=== PATIENT | female | born 1985 | race Caucasian/White ===

== ENCOUNTER 2018-04-01 04:07 | Emergency (ER) | payer BC ==
[2018-04-01 05:02] LABS: Absolute Lymphocytes (CBC) 2.7 K/uL (0.7-4.9); Absolute Monocytes 0.9 K/uL (0.1-1.3); Absolute Neutrophil 6.5 K/uL (1.8-8.0); Basophils % 0.8 % (0-1.3); Eosinophils % 1.2 % (0-4.4); Hematocrit 35.4 % (36.0-45.0); Lymphocytes % 26.5 % (15.3-44.8); MCH 29.3 pg (27.0-35.0); MCV 85.7 fL (80-100); MPV 9.6 fL (7.6-11.3); Monocytes % 8.5 % (3.3-12.3); RBC Red Blood Cell Count 4.13 M/uL (3.86-4.86)
[2018-04-01] MEDS ORDERED: NA CHLORIDE 0.9% 1,000 ML ONE (05:13)
[2018-04-01] MEDS ORDERED: ASPIRIN 81 MG CHEWABLE TABLET ONE (05:13)
[2018-04-01 05:17] LABS: Protime INR 0.87
[2018-04-01 05:31] LABS: ALT/SGPT 29 U/L (12-78); AST/SGOT 22 U/L (15-37); Albumin 3.8 g/dL (3.4-5.0); Alkaline Phosphatase 76 U/L (45-117); BUN Blood Urea Nitrogen 16 mg/dL (7-18); Bicarbonate 25 mmol/L (21-32); Bilirubin Direct < 0.1 mg/dL (0-0.2); Bilirubin Total 0.1 mg/dL (0.2-1.0); CKMB Creatine Kinase MB < 1.0 ng/mL (0.3-3.6); Creatine Phosphokinase 88 U/L (26-192); Glucose Level 112 mg/dL (74-106); Magnesium 2.3 mg/dL (1.8-2.4); NT PRO-BNP 42 pg/mL (<125); Potassium 3.8 mmol/L (3.5-5.1); Protein, Total 7.6 g/dL (6.4-8.2); Sodium Level 140 mmol/L (136-145)
[2018-04-01 05:47] LABS: Urine Blood NEGATIVE (NEG); Urine Glucose NEGATIVE (NEG); Urine Protein NEGATIVE (NEG); Urine Specific Gravity 1.025 (1.005-1.030); Urine pH 6.5 (5.0-7.0)
[2018-04-01 07:50] LABS: CKMB Creatine Kinase MB < 1.0 ng/mL (0.3-3.6); Creatine Phosphokinase 65 U/L (26-192)
--- NOTE | 2018-04-01 07:56 | ER ---
Nurse's Notes [facility] Name: Shimon Granger Age: 33 yrs Sex: Female : 1985 Arrival Date: 04/01/2018 Time: 04:10 Bed 16 Private MD: Diagnosis: Chest pain, unspecified-non cardiac Presentation: 04/01 04:21 Presenting complaint: Patient states: she was dancing last night and began to have pain aa1 in her diaphragm area which radiated to her R arm arm. Reports the pain in her chest has since resolved but her R arm is still hurting her. Also reports earlier this morning she felt as if her heart was racing while she was laying on the couch. Transition of care: patient was not received from another setting of care. Onset of symptoms was March 31, 2018 at 22:00. Risk Assessment: Do you want to hurt yourself or someone else? Patient reports no desire to harm self or others. Initial Sepsis Screen: Does the patient meet any 2 criteria? HR > 90 bpm. Does the patient have a suspected source of infection? No. Patient's initial sepsis screen is negative. Care prior to arrival: None. 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 - Social history:: Smoking status: Patient/guardian denies using tobacco. - Ebola Screening: : Patient denies exposure to infectious person Patient denies travel to an Ebola-affected area in the 21 days before illness onset. - Family history:: not pertinent. Screenin:29 Abuse screen: Denies threats or abuse. Denies injuries from another. Nutritional aa1 screening: No deficits noted. Tuberculosis screening: No symptoms or risk factors identified. Fall Risk None identified. Assessment: 04:29 General: Appears in no apparent distress. comfortable, Behavior is calm, cooperative, aa1 appropriate for age. Pain: Complains of pain in diaphragm, xyphoid area and right arm Pain currently is 7 out of 10 on a pain scale. Pain began 0 last night Is continuous. Neuro: Level of Consciousness is awake, alert, obeys commands, Oriented to person, place, time, situation, Moves all extremities. Full function Gait is steady, Speech is normal. Cardiovascular: Reports chest pain, Denies diaphoresis, nausea, shortness of breath, Heart tones S1 S2 present Rhythm is regular Chest pain quality is sharp, radiates to right arm(s). Respiratory: Airway is patent Respiratory effort is even, unlabored, Respiratory pattern is regular, symmetrical, Breath sounds are clear bilaterally. GI: No signs and/or symptoms were reported involving the gastrointestinal system. : No signs and/or symptoms were reported regarding the genitourinary system. EENT: No signs and/or symptoms were reported regarding the EENT system. Derm: Skin is intact, is healthy with good turgor, Skin is pink, warm \T\ dry. Musculoskeletal: Circulation, motion, and sensation intact. Capillary refill < 3 seconds. 05:37 Reassessment: Patient appears in no apparent distress at this time. Patient and/or aa1 family updated on plan of care and expected duration. Pain level reassessed. Patient is alert, oriented x 3, equal unlabored respirations, skin warm/dry/pink. Awaiting xray. 06:40 Reassessment: Patient appears in no apparent distress at this time. Patient and/or aa1 family updated on plan of care and expected duration. Pain level reassessed. Patient is alert, oriented x 3, equal unlabored respirations, skin warm/dry/pink. Pt back from CT, awaiting results. 07:05 General: Appears in no apparent distress. comfortable, Behavior is calm, cooperative. rb1 Pain: Denies pain. Neuro: Level of Consciousness is awake, alert, obeys commands, Oriented to person, place, time, situation. Cardiovascular: Capillary refill < 3 seconds is brisk in bilateral fingers. Respiratory: Airway is patent Respiratory effort is even, unlabored, Respiratory pattern is regular, symmetrical. Derm: Skin is pink, warm \T\ dry. 08:00 Reassessment: Patient appears in no apparent distress at this time. No changes from rb1 previously documented assessment. Vital Signs: 04:26 BP 120 / 60; Pulse 106; Resp 20; Temp 98.7; Pulse Ox 100% on R/A; Weight 90.72 kg; aa1 Height 5 ft. 0 in. (152.40 cm); Pain 7/10; 05:38 BP 102 / 61; Pulse 88; Resp 16; Pulse Ox 98% on R/A; aa1 06:02 BP 113 / 58 LA; aa1 06:02 BP 108 / 61 RA; aa1 06:40 BP 124 / 65; Pulse 75; Resp 20; Pulse Ox 99% on R/A; Pain 4/10; aa1 07:05 BP 124 / 62; Pulse 70; Resp 15; Pulse Ox 100% on R/A; Pain 0/10; rb1 08:00 BP 113 / 52; Pulse 67; Resp 18; Pulse Ox 100% on R/A; rb1 04:26 Body Mass Index 39.06 (90.72 kg, 152.40 cm) aa1 ED Course: 04:10 Patient arrived in ED. es 04:20 Adis Baker MD is Attending Physician. chuy 04:21 Taisha Caldwell RN is Primary Nurse. aa1 04:26 Triage completed. aa1 04:26 Arm band placed on right wrist. aa1 04:29 Patient has correct armband on for positive identification. Placed in gown. Bed in low aa1 position. child center assistant on. Pulse ox on. NIBP on. 04:29 Patient maintains SpO2 saturation greater than 95% on room air. aa1 04:45 Initial lab(s) drawn, by ED staff, sent to lab. Inserted saline lock: 20 gauge in right aa1 antecubital area, using aseptic technique. ,using aseptic technique. by Glenys Bernardo RN Blood collected. 04:50 EKG done, by ED staff, reviewed by Adis Baker MD. aa1 05:20 Urine collected: clean catch specimen, jannette colored. aa1 06:11 X-ray completed. Portable x-ray completed in exam room. Patient tolerated procedure mh1 well. 06:13 XRAY Chest (1 view) In Process Unspecified. EDMS 06:[address] via stretcher. kw1 06:26 CT Chest For PE Angio In Process Unspecified. EDMS 06:28 CT completed. Patient tolerated procedure well. Patient moved back from CT. kw1 06:49 Sharmaine Colmenares FNP is PHCP. kav 06:49 Sharmaine Colmenares FNP is PHCP. ka 07: Report given to Elle Craft RN. 07:06 Repeat lab(s) drawn. by me, sent to lab. 08:27 Elle Craft, RN is Primary Nurse. 08:27 No provider procedures requiring assistance completed. IV discontinued, intact, rb1 bleeding controlled, No redness/swelling at site. Pressure dressing applied. Administered Medications: 05:15 Drug: NS 0.9% 1000 ml Route: IV; Rate: 1 bolus; Site: right antecubital; aa 05:15 Drug: Aspirin Chewable Tablet 162 mg Route: PO; aa1 06:39 Follow up: Response: No adverse reaction aa Outcome: 07:55 Discharge ordered by . 08:27 Patient left the ED. 08:27 Discharged to home ambulatory. 08:27 Condition: stable 08:27 Discharge instructions given to patient, Instructed on discharge instructions, follow up and referral plans. Demonstrated understanding of instructions, follow-up care, Prescriptions given X none Signatures: Dispatcher [employer] Taisha Dunlap, RN RN aa1 Adis Baker MD MD cha Vern, Katherine, FNP CSM CONSULTANT Micaela Rand [facility] Elle Craft, CHAU RN rb1 Mamta Castaneda1
--- NOTE | 2018-04-01 07:56 | EDPHYS ---
Physician Documentation [facility] Name: Shimon Granger Age: 33 yrs Sex: Female : 1985 Arrival Date: 04/01/2018 Time: 04:10 Bed 16 Private MD: ED Physician Adis Baker HPI: 04/01 04:58 This 33 yrs old Female presents to ER via Ambulatory with complaints of Chest chuy Pain, RT arm pain. 04:58 The patient or guardian reports chest pain that is located primarily in the substernal chuy area. The pain radiates to the right arm. Associated signs and symptoms: Pertinent positives: lightheadedness. The chest pain is described as sharp. Duration: The patient or guardian reports multiple episodes, with no pattern. Modifying factors: The symptoms are alleviated by nothing. the symptoms are aggravated by nothing. Severity of pain: At its worst the pain was mild moderate in the emergency department the pain is unchanged. The patient has not experienced similar symptoms in the past. 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 - Social history:: Smoking status: Patient/guardian denies using tobacco. - Ebola Screening: : Patient denies exposure to infectious person Patient denies travel to an Ebola-affected area in the 21 days before illness onset. - Family history:: not pertinent. ROS: 04:58 Constitutional: Negative for fever, chills, and weight loss, Eyes: Negative for injury, chuy pain, redness, and discharge, ENT: Negative for injury, pain, and discharge, Neck: Negative for injury, pain, and swelling, Respiratory: Negative for shortness of breath, cough, wheezing, and pleuritic chest pain, Abdomen/GI: Negative for abdominal pain, nausea, vomiting, diarrhea, and constipation, Back: Negative for injury and pain, : Negative for injury, bleeding, discharge, and swelling, MS/Extremity: Negative for injury and deformity, Skin: Negative for injury, rash, and discoloration, Neuro: Negative for headache, weakness, numbness, tingling, and seizure, Psych: Negative for depression, anxiety, suicide ideation, homicidal ideation, and hallucinations, Allergy/Immunology: Negative for hives, rash, and allergies, Endocrine: Negative for neck swelling, polydipsia, polyuria, polyphagia, and marked weight changes. 04:58 Cardiovascular: Positive for chest pain, of the chest. Exam: 04:58 Constitutional: This is a well developed, well nourished patient who is awake, alert, chuy and in no acute distress. Head/Face: Normocephalic, atraumatic. Eyes: Pupils equal round and reactive to light, extra-ocular motions intact. Lids and lashes normal. Conjunctiva and sclera are non-icteric and not injected. Cornea within normal limits. Periorbital areas with no swelling, redness, or edema. ENT: Nares patent. No nasal discharge, no septal abnormalities noted. Tympanic membranes are normal and external auditory canals are clear. Oropharynx with no redness, swelling, or masses, exudates, or evidence of obstruction, uvula midline. Mucous membranes moist. Neck: Trachea midline, no thyromegaly or masses palpated, and no cervical lymphadenopathy. Supple, full range of motion without nuchal rigidity, or vertebral point tenderness. No Meningismus. Chest/axilla: Normal chest wall appearance and motion. Nontender with no deformity. No lesions are appreciated. Cardiovascular: Regular rate and rhythm with a normal S1 and S2. No gallops, murmurs, or rubs. Normal PMI, no JVD. No pulse deficits. Respiratory: Lungs have equal breath sounds bilaterally, clear to auscultation and percussion. No rales, rhonchi or wheezes noted. No increased work of breathing, no retractions or nasal flaring. Abdomen/GI: Soft, non-tender, with normal bowel sounds. No distension or tympany. No guarding or rebound. No evidence of tenderness throughout. Back: No spinal tenderness. No costovertebral tenderness. Full range of motion. Female : Normal external genitalia. Skin: Warm, dry with normal turgor. Normal color with no rashes, no lesions, and no evidence of cellulitis. MS/ Extremity: Pulses equal, no cyanosis. Neurovascular intact. Full, normal range of motion. Neuro: Awake and alert, GCS 15, oriented to person, place, time, and situation. Cranial nerves II-XII grossly intact. Motor strength 5/5 in all extremities. Sensory grossly intact. Cerebellar exam normal. Normal gait. Psych: Awake, alert, with orientation to person, place and time. Behavior, mood, and affect are within normal limits. 04:58 Musculoskeletal/extremity: ROM: full active range of motion, full passive range of motion, Circulation is intact in all extremities. DVT Exam: No signs of deep vein thrombosis. no pain, no swelling, no tenderness, negative Homans' sign noted on exam, no appreciated bluish discoloration, no erythema, no increased warmth. Vital Signs: 04:26 BP 120 / 60; Pulse 106; Resp 20; Temp 98.7; Pulse Ox 100% on R/A; Weight 90.72 kg; aa1 Height 5 ft. 0 in. (152.40 cm); Pain 7/10; 05:38 BP 102 / 61; Pulse 88; Resp 16; Pulse Ox 98% on R/A; aa1 06:02 BP 113 / 58 LA; aa1 06:02 BP 108 / 61 RA; aa1 06:40 BP 124 / 65; Pulse 75; Resp 20; Pulse Ox 99% on R/A; Pain 4/10; aa1 07:05 BP 124 / 62; Pulse 70; Resp 15; Pulse Ox 100% on R/A; Pain 0/10; rb1 08:00 BP 113 / 52; Pulse 67; Resp 18; Pulse Ox 100% on R/A; rb1 04:26 Body Mass Index 39.06 (90.72 kg, 152.40 cm) aa1 MDM: 04:20 Patient medically screened. [facility] 04:58 Data reviewed: vital signs, nurses notes, lab test result(s), EKG, radiologic studies, chuy plain films. 04/01 04:33 Order name: Basic Metabolic Panel; Complete Time: 05:59 ms 04/01 04:33 Order name: CBC with Diff; Complete Time: 05:59 ms 04/01 04:33 Order name: Ckmb; Complete Time: 05:59 ms 04/01 04:33 Order name: CPK; Complete Time: 05:59 ms 04/01 04:33 Order name: LFT's; Complete Time: 05:59 ms 04/01 04:33 Order name: Magnesium; Complete Time: 05:59 ms 04/01 04:33 Order name: NT PRO-BNP; Complete Time: 05:59 ms 04/01 04:33 Order name: PT-INR; Complete Time: 05:59 ms 04/01 04:33 Order name: Ptt, Activated; Complete Time: 05:59 ms 04/01 04:33 Order name: Troponin (emerg Dept Use Only); Complete Time: 05:59 ms 04/01 05:05 Order name: D-Dimer; Complete Time: 05:59 EDMS 04/01 05:31 Order name: Urine Dipstick--Ancillary (enter results); Complete Time: 05:59 ms 04/01 05:31 Order name: Urine --Ancillary (enter results); Complete Time: 05:59 ms 04/01 04:33 Order name: XRAY Chest (1 view) ms 04/01 04:33 Order name: EKG; Complete Time: 04:33 ms 04/01 04:33 Order name: Cardiac monitoring; Complete Time: 04:51 ms 04/01 04:33 Order name: EKG - Nurse/Tech; Complete Time: 04:51 ms 04/01 04:33 Order name: IV Saline Lock; Complete Time: 04:51 ms 04/01 04:33 Order name: Labs collected and sent; Complete Time: 04:51 ms 04/01 04:33 Order name: O2 Per Protocol; Complete Time: 04:51 ms 04/01 04:33 Order name: O2 Sat Monitoring; Complete Time: 04:51 ms 04/01 04:33 Order name: Urine Dipstick-Ancillary (obtain specimen); Complete Time: 05:35 ms 04/01 04:57 Order name: Bilateral blood pressure; Complete Time: 06:02 chuy 04/01 05:58 Order name: CT Chest For PE Angio 04/01 06:35 Order name: Ckmb; Complete Time: 07:55 chuy 04/01 06:35 Order name: Creatine Phosphokinase; Complete Time: 07:55 chuy 04/01 06:35 Order name: Troponin (emerg Dept Use Only); Complete Time: 07:54 chuy 04/01 06:35 Order name: Repeat Cardiac Enzymes at: 700 am; Complete Time: 07:06 chuy Administered Medications: 05:15 Drug: NS 0.9% 1000 ml Route: IV; Rate: 1 bolus; Site: right antecubital; aa1 05:15 Drug: Aspirin Chewable Tablet 162 mg Route: PO; aa1 06:39 Follow up: Response: No adverse reaction aa1 Disposition: 04/01/18 07:55 Discharged to Home. Impression: Chest pain, unspecified - non cardiac. - Condition is Stable. - Discharge Instructions: Nonspecific Chest Pain, Chest Wall Pain, Chest Wall Pain, [id number], Nonspecific Chest Pain, [id number], Aspirin and Your Heart. - Medication Reconciliation Form, Thank You Letter form. - Follow up: Private Physician; When: 2 - 3 days; Reason: Recheck today's complaints, Continuance of care, Re-evaluation by your physician. - Problem is new. - Symptoms have improved. Signatures: Dispatcher [employer] [facility] Taisha Caldwell RN RN aa1 Adis Baker MD MD cha Vern, Katherine, BUDGET REPORT CLERK BUDGET REPORT CLERKGlenys Richards ms, Rebecca RN RN rb1 Corrections: (The following items were deleted from the chart) 05:05 04:58 D-DIMER+COAG.LAB.BRZ ordered. [facility] 08:27 07:55 04/01/2018 07:55 Discharged to Home. Impression: Chest pain, unspecified - non rb1 cardiac. Condition is Stable. Discharge Instructions: Nonspecific Chest Pain, Chest Wall Pain, Chest Wall Pain, [id number]-[id number], Nonspecific Chest Pain, Hrvt-pb-[id number], Aspirin and Your Heart. Forms are Medication Reconciliation Form, Thank You Letter, Antibiotic Education, Prescription Opioid Use. Follow up: Private Physician; When: 2 - 3 days; Reason: Recheck today's complaints, Continuance of care, Re-evaluation by your physician. Problem is new. Symptoms have improved. kawally
[2018-04-01 08:33] VITALS: TEMP 98.7
[2018-04-01 08:37] VITALS: BP 124/65; O2SAT 99
--- NOTE | 2018-04-01 09:27 | EKG ---
Test Date: 2018-04-01 Test Time: 04:38:06 Agronomy Research Manager: SILAS MEASUREMENT RESULTS: Intervals: Rate: 109 WY: 200 QRSD: 74 QT: 304 QTc: 409 [place]: P: 49 WY: 200 QRS: 52 T: 45 INTERPRETIVE STATEMENTS: Sinus tachycardia Otherwise normal ECG No previous ECG available for comparison Electronically Signed On 04-01-18 09:27:11 CDT by Sadi Russ
--- NOTE | 2018-04-01 11:34 | RAD REPORT ---
EXAM DESCRIPTION: RAD - Chest Single View - 04/01/2018 6:15 am CLINICAL HISTORY: Chest pain COMPARISON: None. TECHNIQUE: AP portable chest image was obtained 0559 hours . FINDINGS: Lungs are clear. Heart and vasculature are normal. No measurable pleural effusion and no p neumothorax. No gross bony abnormality seen. No acute aortic findings suspected. IMPRESSION: No acute cardiopulmonary process.
--- NOTE | 2018-04-01 11:36 | RAD REPORT ---
EXAM DESCRIPTION: CT - Chest For Pe Angio - 04/01/2018 6:26 am CLINICAL HISTORY: Chest pain, arm pain, COPD A preliminary written report was provided at the time of the study, and the report was reviewed prio r to final dictation. COMPARISON: Chest films same date TECHNIQUE: Dynamically enhanced 3 mm thick images of the chest were obtained during administration o f approximately 150mL Isovue 370 IV contrast. Coronal and oblique reconstruction images were generate d and reviewed. Exam utilizes a protocol to evaluate the pulmonary arterial tree. All CT scans are performed using dose optimization technique as appropriate and may include automated exposure control or mA/KV adjustment according to patient size. FINDINGS: No pulmonary emboli are identified. The aorta as imaged shows no acute or suspicious finding. No pericardial thickening or effusion. No infiltrate or mass in the lung parenchyma. No pleural effusion or pleural thickening. No mediastinal or hilar suspicious masses. No chest wall masses or abnormal axillary lymphadenopathy. IMPRESSION: No pulmonary emboli identified. No other significant or suspicious findings.
== END 2018-04-01 08:27 | disposition home or self-care (01) ==
LOC: ER 04:07
DX: R07.9 Chest pain, unspecified (principal)
CPT/HCPCS: 36415; 71045; 71275; 80048; 80076; 81003; 81025; 82550; 82553; 83735; 83880; 84484; 85025; 85379; 85610; 85730; 93005; 99285; J7030; Q9967

== ENCOUNTER 2018-05-11 16:33 | Emergency (ER) | payer BC ==
[2018-05-11] MEDS ORDERED: IBUPROFEN 400 MG TAB ONE (17:27)
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
[2018-05-11 18:19] LABS: Urine Blood 1+ (NEG); Urine Glucose NEGATIVE (NEG); Urine Protein NEGATIVE (NEG)
[2018-05-11 18:21] VITALS: BP 155/67; TEMP 97.9; O2SAT 100
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
== END 2018-05-11 18:02 | disposition home or self-care (01) ==
LOC: ER 16:33
DX: R07.89 Other chest pain (principal); V49.40XA Driver injured in collision with unspecified motor vehicles in traffic accident, initial encounter
CPT/HCPCS: 71045; 81003; 81025; 99284

== ENCOUNTER 2021-06-19 10:24 | Emergency (ER) | payer BC, OTHER ==
[2021-06-19 10:52] LABS: Absolute Lymphocytes (CBC) 1.5 K/uL (0.7-4.9); Basophils % 0.5 % (0-1.3); Hematocrit 37.7 % (36.0-45.0); Lymphocytes % 23.5 % (15.3-44.8); MPV 9.1 fL (7.6-11.3); RBC Red Blood Cell Count 4.59 M/uL (3.86-4.86)
[2021-06-19 10:55] LABS: Protime INR 1.14
[2021-06-19 11:11] LABS: ALT/SGPT 30 U/L (12-78); AST/SGOT 17 U/L (15-37); Albumin 4.1 g/dL (3.4-5.0); Alkaline Phosphatase 79 U/L (45-117); BUN Blood Urea Nitrogen 10 mg/dL (7-18); Bicarbonate 28 mmol/L (21-32); Bilirubin Direct 0.1 mg/dL (0-0.2); Bilirubin Total 0.4 mg/dL (0.2-1.0); Glucose Level 104 mg/dL (74-106); Magnesium 2.7 mg/dL (1.8-2.4); NT PRO-BNP 49 pg/mL (<125); Potassium 4.1 mmol/L (3.5-5.1); Protein, Total 8.3 g/dL (6.4-8.2); Sodium Level 138 mmol/L (136-145); Troponin (Emerg Dept Use Only) < 0.02 ng/mL (0.0-0.045)
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
--- NOTE | 2021-06-19 13:11 | RAD REPORT ---
EXAM DESCRIPTION: CT - Angio Aorta For Dissection - 06/19/2021 12:55 pm CLINICAL HISTORY: Dissection;PE COMPARISON: None. TECHNIQUE: Dynamically enhanced 3 mm thick images of the chest, abdomen, and upper pelvis were obtai feliberto during administration of approximately 150mL Isovue 370 IV contrast. Sagittal and coronal reconst ruction images were generated using MIP and reviewed. Exam utilizes a protocol to evaluate entire cou rse of the aorta. All CT scans are performed using dose optimization technique as appropriate and may include automated exposure control or mA/KV adjustment according to patient size. FINDINGS: Aorta is normal in diameter with no dissection or other acute aortic findings. Reconstruct ion images show no significant findings. Pulmonary arteries are normal as well. No cardiomegaly, pericardial thickening or pericardial effusio n. No mass or infiltrate in the lung parenchyma. No pleural thickening, pleural effusion or pneumothorax . No abnormal mediastinal or hilar mass or lymphadenopathy seen. No chest wall mass or abnormal axillar y lymphadenopathy. Celiac, SMA and renal arteries show no suspicious findings. Solid abdominal viscera and bowel show no significant findings. No mass or abnormal lymphadenopathy. No free air, free fluid or inflammatory stranding. No urinary bladder abnormality. IMPRESSION: Negative CT scan of the aorta. No other significant findings on chest, abdomen and upper pelvis examination.
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
[2021-06-19] MEDS ORDERED: FAMOTIDINE 20 MG/2 ML VIAL IV ONE (13:24)
[2021-06-19] MEDS ORDERED: NA CHLORIDE 0.9% 1,000 ML ONE (13:24)
--- NOTE | 2021-06-19 13:37 | EDPHYS ---
Physician Documentation [facility] Name: Shimon Granger Age: 36 yrs Sex: Female : 1985 Arrival Date: 06/19/2021 Time: 10:25 Bed 14 Private MD: TIM Physician Adis Baker HPI: 06/19 12:57 This 36 yrs old Female presents to ER via Ambulatory with complaints of Chest chuy Pain. 12:57 This 36 yrs old Female presents to ER via Ambulatory with complaints of Chest chuy Pain. 12:57 The patient or guardian reports chest pain that is located primarily in the substernal chuy area, anterior chest wall, left. The pain radiates to the left shoulder. The chest pain is described as aching. 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 - Social history:: Smoking status: Patient denies any tobacco usage or history of. - Family history:: not pertinent. ROS: 12:58 Constitutional: Negative for fever, chills, and weight loss, Eyes: Negative for injury, chuy pain, redness, and discharge, ENT: Negative for injury, pain, and discharge, Neck: Negative for injury, pain, and swelling, Respiratory: Negative for shortness of breath, cough, wheezing, and pleuritic chest pain, Back: Negative for injury and pain, : Negative for injury, bleeding, discharge, and swelling, MS/Extremity: Negative for injury and deformity, Skin: Negative for injury, rash, and discoloration, Neuro: Negative for headache, weakness, numbness, tingling, and seizure, Psych: Negative for depression, anxiety, suicide ideation, homicidal ideation, and hallucinations, Allergy/Immunology: Negative for hives, rash, and allergies, Endocrine: Negative for neck swelling, polydipsia, polyuria, polyphagia, and marked weight changes, Hematologic/Lymphatic: Negative for swollen nodes, abnormal bleeding, and unusual bruising. 12:58 Cardiovascular: Positive for chest pain. 12:58 Respiratory: Positive for 12:58 Abdomen/GI: Positive for abdominal pain, abdominal cramps, of the epigastric area, right upper quadrant and left upper quadrant. Exam: 12:58 Constitutional: This is a well developed, well nourished patient who is awake, alert, chuy and in no acute distress. Head/Face: Normocephalic, atraumatic. Eyes: Pupils equal round and reactive to light, extra-ocular motions intact. Lids and lashes normal. Conjunctiva and sclera are non-icteric and not injected. Cornea within normal limits. Periorbital areas with no swelling, redness, or edema. ENT: Nares patent. No nasal discharge, no septal abnormalities noted. Tympanic membranes are normal and external auditory canals are clear. Oropharynx with no redness, swelling, or masses, exudates, or evidence of obstruction, uvula midline. Mucous membranes moist. Neck: Trachea midline, no thyromegaly or masses palpated, and no cervical lymphadenopathy. Supple, full range of motion without nuchal rigidity, or vertebral point tenderness. No Meningismus. Chest/axilla: Normal chest wall appearance and motion. Nontender with no deformity. No lesions are appreciated. Cardiovascular: Regular rate and rhythm with a normal S1 and S2. No gallops, murmurs, or rubs. Normal PMI, no JVD. No pulse deficits. Respiratory: Lungs have equal breath sounds bilaterally, clear to auscultation and percussion. No rales, rhonchi or wheezes noted. No increased work of breathing, no retractions or nasal flaring. Abdomen/GI: Soft, non-tender, with normal bowel sounds. No distension or tympany. No guarding or rebound. No evidence of tenderness throughout. Back: No spinal tenderness. No costovertebral tenderness. Full range of motion. Skin: Warm, dry with normal turgor. Normal color with no rashes, no lesions, and no evidence of cellulitis. MS/ Extremity: Pulses equal, no cyanosis. Neurovascular intact. Full, normal range of motion. Neuro: Awake and alert, GCS 15, oriented to person, place, time, and situation. Cranial nerves II-XII grossly intact. Motor strength 5/5 in all extremities. Sensory grossly intact. Cerebellar exam normal. Normal gait. Psych: Awake, alert, with orientation to person, place and time. Behavior, mood, and affect are within normal limits. 12:58 Musculoskeletal/extremity: DVT Exam: No signs of deep vein thrombosis. no pain, no swelling, no tenderness, negative Homans' sign noted on exam, no appreciated bluish discoloration, no erythema, no increased warmth. 13:03 ECG was reviewed by the Attending Physician. chuy Vital Signs: 10:31 BP 123 / 57; Pulse 93; Resp 16; Temp 98.2; Pulse Ox 100% on R/A; Weight 92.99 kg; kj1 Height 5 ft. (152.40 cm); Pain 8/10; 13:19 BP 108 / 52; Pulse 56; Resp 16 S; Pulse Ox 100% on R/A; jd3 10:31 Body Mass Index 40.04 (92.99 kg, 152.40 cm) kj1 MDM: 11:27 Patient medically screened. chuy 12:59 Differential diagnosis: abnormal EKG, acute myocardial infarction, cholecystitis, chuy Cholelithiasis costochondritis, gastroesophageal reflux disease (GERD), hiatal hernia, pancreatitis, peptic ulcer disease, stable angina, unstable angina, myocardia ischemia or infarction, non-specific abd pain, pancreatitis, Peptic Ulcer Disease, Ureterolithiasis, urinary tract infection. HEART Score: History: Slightly Suspicious (0), ECG: Normal (0), Age: < or = 45 years (0), Risk Factors: No Risk Factors Known (0), Troponin: < or = 1 x Normal Limit (0), Total Score = 0. The patient's deep vein thrombosis risk score was calculated as follows: Total Score: 0. This patient was found to be at low risk for a deep vein thrombosis by using the Well's assessment criteria. The patient's pulmonary embolism risk score was calculated as follows: Total Score: 0-2 points. This patient was found to be at low risk for a pulmonary embolism by using the Well's assessment criteria. VIDAL Risk Score: TOTAL SCORE = 0. Data reviewed: vital signs, nurses notes, lab test result(s), EKG, radiologic studies, CT scan, plain films, ultrasound. Data interpreted: contract designer: rate is 93 beats/min, rhythm is regular, Pulse oximetry: on room air is 100 %. Test interpretation: by ED physician or midlevel provider: ECG, plain radiologic studies. 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 06/19 10:42 Order name: Basic Metabolic Panel [facility] 06/19 10:42 Order name: CBC with Diff aa 06/19 10:42 Order name: LFT's aa 06/19 10:42 Order name: Magnesium; Complete Time: 11:29 aa5 06/19 10:42 Order name: NT PRO-BNP; Complete Time: 11:29 aa5 06/19 10:42 Order name: PT-INR; Complete Time: 11:29 aa5 06/19 10:42 Order name: Troponin (emerg Dept Use Only); Complete Time: 11:29 aa5 06/19 10:42 Order name: XRAY Chest (1 view); Complete Time: 11:29 aa 06/19 10:43 Order name: Basic Metabolic Panel; Complete Time: 11:29 EDMS 06/19 10:43 Order name: CBC with Automated Diff; Complete Time: 11:29 EDMS 06/19 10:43 Order name: Liver (Hepatic) Function; Complete Time: 11:29 EDMS 06/19 10:45 Order name: Abdomen Limited US; Complete Time: 13:36 aa5 06/19 12:33 Order name: CT Aorta for Dissection; Complete Time: 13:36 chuy 06/19 10:42 Order name: EKG; Complete Time: 10:43 5 06/19 10:42 Order name: Cardiac monitoring; Complete Time: 11:18 aa5 06/19 10:42 Order name: EKG - Nurse/Tech; Complete Time: 10:43 aa5 06/19 10:42 Order name: IV Saline Lock; Complete Time: 10:43 aa5 06/19 10:42 Order name: Labs collected and sent; Complete Time: 10:43 aa5 06/19 10:42 Order name: O2 Per Protocol; Complete Time: 10:43 aa5 06/19 10:42 Order name: O2 Sat Monitoring; Complete Time: 10:43 aa EC:03 Rate is 82 beats/min. Rhythm is regular. QRS [place] is Normal. VT interval is normal. QRS chuy interval is normal. QT interval is normal. No Q waves. T waves are Normal. No ST changes noted. Clinical impression: Normal ECG and No evidence of ischemia. Interpreted by me. Reviewed by me. Administered Medications: 13:14 Drug: Pepcid (famotidine) 20 mg Route: IVP; Site: right antecubital; jd3 13:58 Follow up: Response: No adverse reaction jd3 13:14 Drug: NS 0.9% 1000 ml Route: IV; Rate: 1 bolus; Site: right antecubital; jd3 13:58 Follow up: Response: No adverse reaction; IV Status: Completed infusion; IV Intake: jd3 1000ml Disposition Summary: 06/19/21 13:37 Discharge Ordered Location: Home chuy Problem: new chuy Symptoms: have improved chuy Condition: Stable chuy Diagnosis - Epigastric abdominal tenderness chuy - Chest pain, unspecified chuy - Functional dyspepsia chuy Followup: chuy - With: Private Physician - When: 2 - 3 days - Reason: Recheck today's complaints, Continuance of care, Re-evaluation by your physician Followup: chuy - With: - When: 2 - 3 days - Reason: Recheck today's complaints, Re-evaluation by your physician Followup: chuy - With: - When: 2 - 3 days - Reason: Recheck today's complaints, Re-evaluation by your physician Discharge Instructions: - Discharge Summary Sheet chuy - Abdominal Pain, Adult chuy - Nonspecific Chest Pain, Adult chuy - Abdominal Pain, Adult, [id number] chuy - Nonspecific Chest Pain, Adult, [id number] chuy - Aspirin and Your Heart chuy Forms: - Medication Reconciliation Form chuy - Thank You Letter chuy - Antibiotic Education chuy - Prescription Opioid Use chuy Prescriptions: - Pepcid 20 mg Oral Tablet - take 1 tablet by ORAL route every 12 hours for 30 days; 60 tablet; Refills: 0, chuy Product Selection Permitted Signatures: Dispatcher [employer] Adis Boston MD MD cha Calderon, Audri, RN RN aa5 Juan M Lopez RN RN jd3
--- NOTE | 2021-06-19 13:37 | ER ---
Nurse's Notes [facility] Name: Shimon Granger Age: 36 yrs Sex: Female : 1985 Arrival Date: 06/19/2021 Time: 10:25 Bed 14 Private MD: Diagnosis: Epigastric abdominal tenderness;Chest pain, unspecified;Functional dyspepsia Presentation: 06/19 10:30 Chief complaint: Patient states: upper abd pain that began on Monday. Pt also aa5 reports left-sided upper chest pain that began today. 10:30 Method Of Arrival: Ambulatory aa5 10:30 Coronavirus screen: At this time, the client does not indicate any symptoms associated aa5 with coronavirus-19. Ebola Screen: Patient negative for fever greater than or equal to 101.5 degrees Fahrenheit, and additional compatible Ebola Virus Disease symptoms. Initial Sepsis Screen: Does the patient meet any 2 criteria? No. Patient's initial sepsis screen is negative. Does the patient have a suspected source of infection? No. Patient's initial sepsis screen is negative. Risk Assessment: Do you want to hurt yourself or someone else? Patient reports no desire to harm self or others. Onset of symptoms was June 2021. 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 - Social history:: Smoking status: Patient denies any tobacco usage or history of. - Family history:: not pertinent. Screenin:24 Abuse screen: Denies threats or abuse. Nutritional screening: No deficits noted. jd3 Tuberculosis screening: No symptoms or risk factors identified. Fall Risk IV access (20 points). Ambulatory Aid- None/Bed Rest/Nurse Assist (0 pts). Gait- Normal/Bed Rest/Wheelchair (0 pts) Mental Status- Oriented to own ability (0 pts). Total Spencer Fall Scale indicates No Risk (0-24 pts). Assessment: 11:22 General: Appears in no apparent distress. comfortable, Behavior is calm, cooperative, jd3 appropriate for age. Pain: Denies pain. Pain does not radiate. Pain began gradually, Goal of pain control is to pt reported pain prior to arrival, but pain has gone away at this point. Neuro: Level of Consciousness is awake, alert, obeys commands, Oriented to person, place, time, situation. Cardiovascular: Capillary refill < 3 seconds Patient's skin is warm and dry. Rhythm is regular. Respiratory: Airway is patent Respiratory effort is even, unlabored, Respiratory pattern is regular, symmetrical, Denies cough, shortness of breath. GI: Abdomen is non-distended, Abd is soft and non tender X 4 quads. Patient currently denies diarrhea, nausea, vomiting. : No signs and/or symptoms were reported regarding the genitourinary system. EENT: No signs and/or symptoms were reported regarding the EENT system. Derm: Skin is intact, Skin is dry, Skin is normal, Skin temperature is warm. Musculoskeletal: Circulation, motion, and sensation intact. Range of motion: intact in all extremities. 13:18 Reassessment: Patient appears in no apparent distress at this time. Patient and/or jd3 family updated on plan of care and expected duration. Pain level reassessed. Patient is alert, oriented x 3, equal unlabored respirations, skin warm/dry/pink. reporting headache, provider notified, no new orders at this time. awaiting results and disposition. 13:56 Reassessment: Patient appears in no apparent distress at this time. Patient and/or jd3 family updated on plan of care and expected duration. Pain level reassessed. Patient is alert, oriented x 3, equal unlabored respirations, skin warm/dry/pink. reported understanding of discharge instructions. even and steady gait upon discharge. Vital Signs: 10:31 BP 123 / 57; Pulse 93; Resp 16; Temp 98.2; Pulse Ox 100% on R/A; Weight 92.99 kg; kj1 Height 5 ft. (152.40 cm); Pain 8/10; 13:19 BP 108 / 52; Pulse 56; Resp 16 S; Pulse Ox 100% on R/A; jd3 10:31 Body Mass Index 40.04 (92.99 kg, 152.40 cm) kj1 ED Course: 10:25 Patient arrived in ED. as 10:30 EKG completed in triage. Results shown to MD. aa5 10:30 Arm band placed on. aa5 10:41 Triage completed. aa5 10:45 Initial lab(s) drawn, by ED staff, sent to lab. Inserted saline lock: 20 gauge in right aa5 antecubital area, using aseptic technique. Blood collected. IV inserted by LYNN Ma. 10:46 Adis Baker MD is Attending Physician. chuy 11:04 XRAY Chest (1 view) In Process Unspecified. EDMS 11:17 Juan M Lopez, RN is Primary Nurse. jd3 11:18 Patient has correct armband on for positive identification. Bed in low position. Call 5 light in reach. Side rails up X 1. Warm blanket given. teletypesetter monitor on. Pulse ox on. NIBP on. 11:18 Basic Metabolic Panel Sent. mh5 11:18 CBC with Diff Sent. mh5 11:18 LFT's Sent. 5 11:19 EKG done, by ED staff. mh5 11:24 Patient maintains SpO2 saturation greater than 95% on room air. jd3 11:32 Abdomen Limited US In Process Unspecified. EDMS 12:55 CT Aorta for Dissection In Process Unspecified. EDMS 13:37 Frederic Crump MD is Referral Physician. [facility] 13:37 Carlos Cedeno MD is Referral Physician. [facility] 13:57 No provider procedures requiring assistance completed. IV discontinued, intact, jd3 bleeding controlled, No redness/swelling at site. Pressure dressing applied. Administered Medications: 13:14 Drug: Pepcid (famotidine) 20 mg Route: IVP; Site: right antecubital; jd3 13:58 Follow up: Response: No adverse reaction jd3 13:14 Drug: NS 0.9% 1000 ml Route: IV; Rate: 1 bolus; Site: right antecubital; jd3 13:58 Follow up: Response: No adverse reaction; IV Status: Completed infusion; IV Intake: jd3 1000ml Intake: 13:58 IV: 1000ml; Total: 1000ml. jd3 Outcome: 13:37 Discharge ordered by . chuy 13:57 Discharged to home ambulatory, with family. jd3 13:57 Condition: stable 13:57 Discharge instructions given to patient, family, Instructed on discharge instructions, follow up and referral plans. medication usage, Demonstrated understanding of instructions, follow-up care, medications, Prescriptions given X 1. 13:58 Patient left the ED. jd3 Signatures: Dispatcher [employer] EDAdis Eagle MD MD cha Martinez, Amelia as Calderon, Audri, RN RN say5 Glenys Siddiqi Juan M Mccurdy RN RN Yaquelin Lilly kj1 Corrections: (The following items were deleted from the chart) 13:58 13:19 BP 108 / 42; Pulse 56bpm; Resp 16bpm; Spontaneous; Pulse Ox 100% RA; jd3 jd3
[2021-06-19 14:12] VITALS: TEMP 98.2; O2SAT 100
[2021-06-19 14:13] VITALS: BP 108/42
--- NOTE | 2021-06-21 09:02 | EKG ---
Test Date: 2021-06-19 Test Time: 10:37:11 Chief Console Operator: NEMO MEASUREMENT RESULTS: Intervals: Rate: 82 LA: 170 QRSD: 74 QT: 356 QTc: 415 [place]: P: 56 LA: 170 QRS: 54 T: 53 INTERPRETIVE STATEMENTS: Normal sinus rhythm Normal ECG Compared to ECG 04/01/2018 04:38:06 Sinus tachycardia no longer present Electronically Signed On 06-21-21 08:57:44 CDT by Frederic Crump
== END 2021-06-19 13:58 | disposition home or self-care (01) ==
LOC: ER 10:24
DX: K30 Functional dyspepsia (principal); R10.816 Epigastric abdominal tenderness
CPT/HCPCS: 96361; 93005; 85025; 80048; 36415; 83735; 85610; 80076; 84484; 83880; 71275; 74175; 71045; 76705; 96374; 99285; Q9967; J7030

== ENCOUNTER 2023-07-30 18:12 | Emergency (ER) | payer OTHER ==
--- OUTSIDE RECORDS SUMMARY | 2023-07-30 18:16 | XMS REPORT | Continuity of Care Document ---
:1985 Author Organization [facility] t Address [address] [facility] [address] [place] [address] Care Team Providers Name Role Phone Leatha Garcia Primary Care Physician GUDEILA CARMONA Attending Clinician Unavailable SUSAN SOLIS Attending Clinician Unavailable JOAQUIN BARNARD Attending Clinician Unavailable SARAH MARTI Attending Clinician Unavailable ROSEANN GEIGER Attending Clinician Unavailable Lilly Jha MA Attending Clinician Unavailable EDGAR MORALES Attending Clinician Unavailable Edgar Gillespie Attending Clinician Nurse, [facility] Attending Clinician Unavailable Ophelia Krishna Attending Clinician OPHELIA HUTCHINSON Attending Clinician Unavailable Doctor Unassigned, [place] Attending Clinician Unavailable Sammi Paz RN Attending Clinician Unavailable Provider, [facility] Attending Clinician Unavailable Nurse, Ang Db Attending Clinician Unavailable Only, Ang Db Test Attending Clinician Unavailable Dax Melton Attending Clinician DAX HIGH Attending Clinician Unavailable Nick SUNG, Sendashlee K.H. Attending Clinician CHRISTINA ROMERO K.H. Attending Clinician Unavailable Leatha Garcia Attending Clinician Kiko Ortiz DO Attending Clinician Andi SUNG, Kaushik Attending Clinician , Adc Cardio Fac Room Attending Clinician Unavailable Pc, Adc Echo Room 1 - Attending Clinician Unavailable RADIOLOGY Attending Clinician Unavailable EDGAR MORALES Admitting Clinician Unavailable NICOLA DANIELS Admitting Clinician Unavailable Payers Payer Name Policy Type Policy Number Effective Date Expiration Date S ource OPEN ACCESS [employer]ET[employer] [id number] 2020 SELECT EPO 00:00:00 AET[employer] COMMERCIAL [id number] 2020 OUT OF NETWORK 00:00:00 [place] [id number] 2019 00:00:00 [place] [id number] 2019 00:00:00 Problems Condition Condition Condition Status Onset Resolution Last Treating Co mments Source Name Details Category Date Date Treatment Clinician Date S/P S/P Disease Active [facility] laparoscop laparoscop 11-01 He alth ic sleeve ic sleeve 00:00: gastrectom gastrectom 00 y y Gastroesop Gastroesop Disease Active 2020-09 U T hageal hageal 2-20 Health reflux reflux 00:00: disease disease 00 without without esophagiti esophagiti s s Class 2 Class 2 Disease Active 2020-09 UT severe severe 2-20 Health obesity obesity 00:00: due to due to 00 excess excess calories calories with with serious serious comorbidit comorbidit y and body y and body mass index mass index (BMI) of (BMI) of 36.0 to 36.0 to 36.9 in 36.9 in adult adult Class 1 Class 1 Disease Active 2020-09 UT obesity obesity 2-20 Health due to due to 00:00: excess excess 00 calories calories with with serious serious comorbidit comorbidit y and body y and body mass index mass index (BMI) of (BMI) of 31.0 to 31.0 to 31.9 in 31.9 in adult adult Atypical Atypical Disease Active 2020-09 UT chest pain chest pain 09-05 He alth 00:00: 00 CENTENO CENTENO Disease Active 2020-09 UT (dyspnea (dyspnea 09-05 Health on on 00:00: exertion) exertion) 00 Dyslipidem Dyslipidem Disease Active 2020-09 U T ia ia 09-05 Health 00:00: 00 Elevated Elevated Disease Active 2020-09 UT blood blood 09-05 Health pressure pressure 00:00: reading in reading in 00 office office without without diagnosis diagnosis of of hypertensi hypertensi on on No known No known Disease Unive rs active active ity of problems problems [facility] Allergies, Adverse Reactions, Alerts Allergy Allergy Status Severity Reaction(s) Onset Inactive Treating Comm ents Source Name Type Date Date Clinician NO KNOWN Drug Active Univers ALLERGIE Class ity of S [facility] Social History Social Habit Start Date Stop Date Quantity Comments Source Sexual orientation Univer [facility]ity [facility] [place] [facility] [place] History [facility] University o f Alcohol Frequency [place] [facility] History [facility] University o f Alcohol Std Drinks [place] [facility] [place] History [facility] o f Alcohol Binge [place] [facility] Exposure to 2022-03-25 2022-04-04 Not sure [place] [facility] SARS-CoV-2 (event) 00:00:00 15:45:00 Tobacco use and 2021-04-19 2021-04-19 Smokeless [place] [facility] exposure 00:00:00 00:00:00 tobacco non-user History of Social 2020-04-09 2020-04-09 Univers ity of function 00:00:00 00:00:00 [facility] Alcohol intake 2019-09-27 2019-09-27 Current drinker Unive rsity of 00:00:00 00:00:00 of alcohol [facility] (finding) [place] Alcohol Comment 2019-08-20 2019-08-20 0-1 drinks per Unive rsity of 00:00:00 00:00:00 week [facility] Sex Ass[birth year] At [birth year] Universit y of 00:00:00 00:00:00 [facility] Smoking Status Start Date Stop Date Source Never smoked tobacco [facility] Medications Ordered Filled Start Stop Current Ordering Indication Dosage Frequency Signature Comments Components Source Medication Medication Date Date Medication? Clinician (SIG) Name Name maalox:diph No 15mL 15 mL, Uni vers enhydrAMINE 02-05 Oral, ity of :lidocaine 23:15: 22:41 ONCE, 1 [place] as 2 % viscous 00 :00 dose, On Medi carlos alberto 1:1:1 02/05/22 [place] (FIRST-MOUT at 1815, [facility]) Routine oral suspension 15 mL ondansetron No 4mg 4 mg, Slow Univers (ZOFRAN 02-05 IV Push, ity of (PF)) 23:15: 22:41 ONCE, 1 [place] injection 4 00 :00 dose, On Medi carlos alberto mg 02/05/22 Branch at 1815, MICAELA NaCl 0.9% No 1000mL at 999 Uni vers (NS) bolus - 06-05 mL/hr, ity of infusion 23:00: 00:21 1,000 mL, [place] as 1,000 mL 00 :00 IV Medical Infusion, Branch ONCE, 1 dose, On 02/05/22 at 1800, MICAELA No known 2021-0 No Univers medications -04 ity of 16:27: [address] No known 2021-0 No Univers medications -04 ity of 16:27: [address] metoclopram Yes 10mg Take 10 mg UT kedar 6-04 by mouth Health (Reglan) 10 00:00: if needed. MG tablet 00 metoclopram Yes 10mg Take 10 mg UT kedar 6-04 by mouth Health (Reglan) 10 00:00: if needed. MG tablet 00 metoclopram Yes 10mg Take 10 mg UT kedar 6-04 by mouth Health (Reglan) 10 00:00: if needed. MG tablet 00 metoclopram Yes [id number] 10mg Take 1 Univers kedar HCl 10 6-04 tablet by ity of mg tablet 00:00: mouth [place] 00 every 6 Medical (six) Branch hours as needed for Nausea and Vomiting (N/V). pantoprazol 2020-09- No [id number] 40mg Take 1 UT e 09-2218 tablet (40 Health (Protonix) 00:00: 05:59 mg total) 40 MG EC 00 :00 by mouth 1 tablet (one) time each day before breakfast. Do not crush, chew, or split. pantoprazol 2020-09- No [id number] 40mg Take 1 UT e 09-22-18 tablet (40 Health (Protonix) 00:00: 05:59 mg total) 40 MG EC 00 :00 by mouth 1 tablet (one) time each day before breakfast. Do not crush, chew, or split. famotidine 2020-09 Yes UT (Pepcid) 20 1-04 Health MG tablet 00:00: 00 famotidine 2020-09 Yes UT (Pepcid) 20 1-04 Health MG tablet 00:00: 00 famotidine 2020-09 Yes UT (Pepcid) 20 1-04 Health MG tablet 00:00: 00 famotidine 2020-09 Yes UT (Pepcid) 20 1-04 Health MG tablet 00:00: 00 famotidine 2020-09 Yes UT (Pepcid) 20 1-04 Health MG tablet 00:00: 00 famotidine 2020-09 Yes UT (Pepcid) 20 1-04 Health MG tablet 00:00: 00 famotidine 2020-09 Yes UT (Pepcid) 20 1-04 Health MG tablet 00:00: 00 levocetiriz 2020-09 Yes UT ine (Xyzal) 0-26 Health 5 MG tablet 00:00: 00 fluticasone 2020-09 Yes UT (Flonase) 0-26 Health 50 MCG/ACT 00:00: nasal spray 00 levocetiriz 2020-09 Yes UT ine (Xyzal) 0-26 Health 5 MG tablet 00:00: 00 fluticasone 2020-09 Yes UT (Flonase) 0-26 Health 50 MCG/ACT 00:00: nasal spray 00 levocetiriz 2020-09 Yes UT ine (Xyzal) 0-26 Health 5 MG tablet 00:00: 00 fluticasone 2020-09 Yes UT (Flonase) 0-26 Health 50 MCG/ACT 00:00: nasal spray 00 levocetiriz 2020-09 Yes UT ine (Xyzal) 0-26 Health 5 MG tablet 00:00: 00 fluticasone 2020-09 Yes UT (Flonase) 0-26 Health 50 MCG/ACT 00:00: nasal spray 00 levocetiriz 2020-09 Yes UT ine (Xyzal) 0-26 Health 5 MG tablet 00:00: 00 fluticasone 2020-09 Yes UT (Flonase) 0-26 Health 50 MCG/ACT 00:00: nasal spray 00 levocetiriz 2020-09 Yes UT ine (Xyzal) 0-26 Health 5 MG tablet 00:00: 00 fluticasone 2020-09 Yes UT (Flonase) 0-26 Health 50 MCG/ACT 00:00: nasal spray 00 levocetiriz 2020-09 Yes UT ine (Xyzal) 0-26 Health 5 MG tablet 00:00: 00 fluticasone 2020-09 Yes UT (Flonase) 0-26 Health 50 MCG/ACT 00:00: nasal spray 00 levocetiriz 2020-09 Yes UT ine (Xyzal) 0-26 Health 5 MG tablet 00:00: 00 fluticasone 2020-09 Yes UT (Flonase) 0-26 Health 50 MCG/ACT 00:00: nasal spray 00 levocetiriz 2020-09 Yes UT ine (Xyzal) 0-26 Health 5 MG tablet 00:00: 00 fluticasone 2020-09 Yes UT (Flonase) 0-26 Health 50 MCG/ACT 00:00: nasal spray 00 No known 2020-09 No Univers medications 0-20 ity of 15:28: [address] No known 2020-09 No Univers medications 0-20 ity of 15:28: [address] No known 2020-09 No Univers medications 0-20 ity of 15:28: [address] No known 2020- No Univers medications 0-20 ity of 15:28: [address] No known 2020-09 No Univers medications 0-20 ity of 15:28: [address] No known 2020-09 No Univers medications 0-20 ity of 15:28: [address] No known No No known UT medications 8-16 medication He alth 15:57: s 30 Immunizations Ordered Filled Date Status Comments Source Immunization Name Immunization Name PPD (TB) 2019-09-16 Completed University of 00:00:00 [facility] PPD (TB) 2019-09-16 Completed University of 00:00:00 [facility] PPD (TB) 2019-09-16 Completed University of 00:00:00 [facility] PPD (TB) 2019-09-16 Completed University of 00:00:00 [facility] PPD (TB) 2019-09-16 Completed University of 00:00:00 [facility] PPD (TB) 2019-09-16 Completed University of 00:00:00 [facility] PPD (TB) 2019-09-16 Completed University of 00:00:00 [facility] PPD (TB) 2019-09-16 Completed University of 00:00:00 [facility] PPD (TB) 2019-09-16 Completed University of 00:00:00 [facility] Influenza Virus 2019-04-04 Completed Universit y of Vaccine 00:00:00 [facility] Influenza Virus 2019-04-04 Completed Universit y of Vaccine 00:00:00 [facility] Influenza Virus 2019-04-04 Completed Universit y of Vaccine 00:00:00 [facility] Influenza Virus 2019-04-04 Completed Universit y of Vaccine 00:00:00 [facility] Influenza Virus 2019-04-04 Completed Universit y of Vaccine 00:00:00 [facility] Influenza Virus 2019-04-04 Completed Universit y of Vaccine 00:00:00 [facility] Influenza Virus 2019-04-04 Completed Universit y of Vaccine 00:00:00 [facility] Influenza Virus 2019-04-04 Completed Universit y of Vaccine 00:00:00 [facility] Influenza Virus 2019-04-04 Completed Universit y of Vaccine 00:00:00 [facility] PPD (TB) Unknown Completed [facility] Influenza Virus Unknown Completed Universit y of Vaccine [facility] PPD (TB) Unknown Completed [facility] Influenza Virus Unknown Completed Universit y of Vaccine [facility] Vital Signs Vital Name Observation Time Observation Value Comments Source Body height 2021-07-07 12:45:00 152.4 cm [facility] Body weight 2021-07-07 12:45:00 [facility]26 [facility] BMI 2021-07-07 12:45:00 40.15 kg/m2 [facility] Systolic blood 2022-04-04 20:50:00 115 mm[Hg] [facility] Hea lth pressure Diastolic blood 2022-04-04 20:50:00 68 mm[Hg] [facility] He alth pressure Heart rate 2022-04-04 20:50:00 61 /min [facility] Body temperature 2022-04-04 20:50:00 36.5 Smita [facility] ealth Body height 2022-04-04 20:50:00 152.4 cm [facility] Body weight 2022-04-04 20:50:00 64.048 kg [facility] BMI 2022-04-04 20:50:00 27.58 kg/m2 [facility] Oxygen saturation in 2022-04-04 20:50:00 98 /min [facility] Arterial blood by Pulse oximetry Body height 2022-03-29 20:38:00 152.4 cm [facility] Body weight 2022-03-29 20:38:00 62.143 kg [facility] BMI 2022-03-29 20:38:00 26.76 kg/m2 [facility] Systolic blood 2022-02-06 00:00:00 101 mm[Hg] Univer sity of pressure [place] [facility] Diastolic blood 2022-02-06 00:00:00 58 mm[Hg] Unive rsity of pressure [place] [facility] Heart rate 2022-02-06 00:00:00 47 /min [facility]i ty [facility] [place] [facility] Respiratory rate 2022-02-06 00:00:00 18 /min Univ ersity of [place] [facility] Oxygen saturation in 2022-02-06 00:00:00 100 /min University of Arterial blood by [place] [employer] carlos alberto Pulse oximetry Branch Body temperature 2022-02-05 22:01:12 36.89 Smita Univ ersity of [place] [facility] Body weight 2022-02-05 21:41:00 68.04 kg Universi ty [facility] [place] [facility] BMI 2022-02-05 21:41:00 29.29 kg/m2 [facility]i ty [facility] [place] [facility] Systolic blood 2022-02-05 21:26:00 106 mm[Hg] Univer sity of pressure [place] [facility] Diastolic blood 2022-02-05 21:26:00 61 mm[Hg] Unive rsity of pressure [place] [facility] Heart rate 2022-02-05 21:26:00 62 /min [facility]i ty [facility] [place] [facility] Body temperature 2022-02-05 21:26:00 36.39 Smita Univ ersity of [place] [facility] Respiratory rate 2022-02-05 21:26:00 17 /min Univ ersity of [place] [facility] Body height 2022-02-05 21:26:00 152.4 cm [facility] [place] [facility] Body weight 2022-02-05 21:26:00 68.04 kg [facility] [place] [facility] BMI 2022-02-05 21:26:00 29.29 kg/m2 [facility] ty [facility] [place] [facility] Oxygen saturation in 2022-02-05 21:26:00 100 /min University of Arterial blood by [place] [employer] carlos alberto Pulse oximetry Branch Systolic blood 2021-12-27 20:38:00 104 mm[Hg] [facility] Hea lth pressure Diastolic blood 2021-12-27 20:38:00 69 mm[Hg] [facility] He alth pressure Heart rate 2021-12-27 20:38:00 70 /min [facility] Body height 2021-12-27 20:38:00 152.4 cm [facility] Body weight 2021-12-27 20:38:00 72.576 kg [facility] BMI 2021-12-27 20:38:00 31.25 kg/m2 [facility] Systolic blood 2021-11-01 15:20:00 110 mm[Hg] [facility] Hea lth pressure Diastolic blood 2021-11-01 15:20:00 78 mm[Hg] [facility] He alth pressure Heart rate 2021-11-01 15:20:00 66 /min [facility] Body temperature 2021-11-01 15:20:00 36.33 Smita [facility] Body height 2021-11-01 15:20:00 152.4 cm [facility] Body weight 2021-11-01 15:20:00 77.293 kg [facility] BMI 2021-11-01 15:20:00 33.28 kg/m2 [facility] Systolic blood 2021-09-27 17:25:00 108 mm[Hg] [facility] Hea lth pressure Diastolic blood 2021-09-27 17:25:00 66 mm[Hg] [facility] He alth pressure Heart rate 2021-09-27 17:25:00 74 /min [facility] Body temperature 2021-09-27 17:25:00 36.44 Smita [facility] Body height 2021-09-27 17:25:00 152.4 cm [facility] Body weight 2021-09-27 17:25:00 83.915 kg [facility] BMI 2021-09-27 17:25:00 36.13 kg/m2 [facility] Systolic blood 2021-08-23 21:32:00 100 mm[Hg] [facility] Hea lth pressure Diastolic blood 2021-08-23 21:32:00 65 mm[Hg] [facility] He alth pressure Heart rate 2021-08-23 21:32:00 75 /min [facility] Body height 2021-08-23 21:32:00 152.4 cm [facility] Body weight 2021-08-23 21:32:00 90.447 kg [facility] BMI 2021-08-23 21:32:00 38.94 kg/m2 [facility] Body height 2021-07-07 12:45:00 152.4 cm [facility] Body weight 2021-07-07 12:45:00 93.26 kg [facility] BMI 2021-07-07 12:45:00 40.15 kg/m2 [facility] Systolic blood 2021-07-06 19:38:00 113 mm[Hg] [facility] Hea lth pressure Diastolic blood 2021-07-06 19:38:00 77 mm[Hg] UT He alth pressure Heart rate 2021-07-06 19:38:00 80 /min [facility] Body height 2021-07-06 19:38:00 152.4 cm [facility] Body weight 2021-07-06 19:38:00 93.26 kg [facility] BMI 2021-07-06 19:38:00 40.15 kg/m2 [facility] Systolic blood 2021-06-23 20:25:00 108 mm[Hg] Univer sity of pressure [facility] Diastolic blood 2021-06-23 20:25:00 58 mm[Hg] Unive rsity of pressure [facility] Heart rate 2021-06-23 20:25:00 69 /min [facility] Body height 2021-06-23 20:25:00 152.4 cm [facility] Body weight 2021-06-23 20:25:00 [facility].534 [facility] 2021-06-23 20:25:00 39.84 kg/m2 [facility] Oxygen saturation in 2021-06-23 20:25:00 95 /min [facility] Arterial blood by [facility] Pulse oximetry Branch [facility] 2021-04-19 20:55:00 40.00 kg/m2 [facility] Systolic blood 2021-04-19 20:55:00 105 mm[Hg] [facility] pressure Diastolic blood 2021-04-19 20:55:00 67 mm[Hg] [facility] He alth pressure Heart rate 2021-04-19 20:55:00 74 /min [facility] Body height 2021-04-19 20:55:00 152.4 cm [facility] Body weight 2021-04-19 20:55:00 92.897 kg [facility] Procedures Procedure Date / Time Performing Clinician Source Performed XR KUB 2022-02-05 22:31:00 Edgar Morales [facility] POCT TEST 2022-02-05 22:15:00 Edgar Morales [facility] LIPASE 2022-02-05 22:06:00 Edgar Morales [facility] TROPONIN I 2022-02-05 22:06:00 Edgar Morales [facility] COMP. METABOLIC PANEL 2022-02-05 22:06:00 Edgar Morales [facility] ([id number]) [facility] CBC WITH DIFF 2022-02-05 22:06:00 Edgar Morales [facility] URINALYSIS 2022-02-05 22:06:00 Edgar Morales [facility] NOTICE OF PRIVACY 2022-02-05 21:38:06 Doctor Unassigned, No [facility] PRACTICES Name [facility] CONSENT/REFUSAL FOR 2022-02-05 21:37:51 Doctor Unassigned, No [facility] DIAGNOSIS AND TREATMENT Name [facility] COMPREHENSIVE METABOLIC 2021-04-28 16:12:00 Sarah Marti [facility] ealt PANEL LIPID PANEL 2021-04-28 16:12:00 Sarah Marti [facility] VITAMIN B12 2021-04-28 16:12:00 Sarah Marti [facility] FOLATE 2021-04-28 16:12:00 Sarah Marti [facility] HEMOGLOBIN A1C 2021-04-28 16:12:00 Sarah Marti [facility] PTH, INTACT 2021-04-28 16:12:00 Sarah Marti [facility] VITAMIN E 2021-04-28 16:12:00 Sarah Marti [facility] VITAMIN A 2021-04-28 16:12:00 [facility], WHOLE BLOOD 2021-04-28 16:12:00 Sarah Marti [facility] IRON AND TIBC 2021-04-28 16:12:00 Sarah Marti [facility] CBC (INCLUDES DIFF/PLT) 2021-04-28 16:12:00 Sarah Marti [facility] ealt WITH PATHOLOGIST REVIEW TSH W/REFLEX TO FT4 2021-04-28 16:12:00 Sarah Marti [facility] CONSULT, SPECIMEN A 2021-04-28 16:12:00 [facility] 2021-04-28 16:12:00 Sarah Marti [facility] alth QUESTASSURED 25-OH VIT 2021-04-28 16:12:00 Sarah Marti [facility] alth D, (D2,D3) Encounters Start End Encounter Admission Attending Care Care Encounter Source Date/Time Date/Time Type Type Clinicians Facility Department ID 2023-02-27 Outpatient [facility] [id number] [place] 06:23:23 [id number] [facility] 2023-02-24 Outpatient [facility] [id number] [place] 14:02:54 [id number] [facility] 2021-07-02 Outpatient HAMILTONRODERICKPARISH, [facility] [id number] [place] 16:56:14 [facility] 2021-06-02 Outpatient WILL, [facility] [id number] [place] 16:21:49 [facility] 2021-05-11 Outpatient TANGREYSONCO, [facility] [id number] [place] 16:29:57 [facility] 2021-05-11 Outpatient AKIL, [facility] [id number] [place] 16:29:15 [facility] 2021-05-11 Outpatient MARTI, [facility] [id number] [place] 16:28:43 [facility] 2021-04-19 Outpatient TANGREYSONCO, [facility] [id number] [place] 16:42:29 [facility] 2022-07-11 2022-07-11 Outpatient SHLOMOAN, [facility] [id number] [place] 16:00:00 16:00:00 [facility] 2022-05-03 2022-05-03 Outpatient ROSEANN GEIGER [facility] [id number] [place] 15:30:00 15:30:00 [facility] 2022-04-14 2022-04-14 Telephone Lilly Jha UTP 6400 [id number] .[id number] [place] 00:00:00 00:00:[address] [id number] Health [id number] 2022-04-04 2022-04-04 Office Misael FANY [id number] [place] 15:45:00 16:20:25 Visit Gudelia LOWE [id number] H [facility] [id number] [facility] [id number] 2022-03-29 2022-03-29 Office Roseann Geiger UTP 6400 [id number] [place] 15:15:00 16:39:36 Visit AWAIS RODRIGUEZ [id number] Health [id number] [id number] 2022-02-05 2022-02-05 Emergency [email or web address] ERT [id number] Univers 16:43:00 [facility]:30[facility]22-02-05 2022-02-05 Emergency [email or web address] [id number] Univers 16:43:00 19:30:00 Edgar [facility] [id number] ity of [place] 4.2.7.2.686 [place] [facility] [id number] [address] 2022-02-05 2022-02-05 Nurse Nurse, [facility] [id number] [id number] Univers 16:20:00 16:40:00 Visit Jasper [employer] [id number] ity of [place] 4.2.7.2.686 Boaz as PETE?BLEA [id number] [place] [address] MEDICAL OFFICE BUILDING 2022-02-05 2022-02-05 Outpatient R JASPER [facility] [id number] Univers 16:20:00 16:20:00 [facility] 2022-02-05 2022-02-05 Orders Doctor HOLLY [id number] Univers 00:00:00 00:00:00 Only Unassigned, WAYNE [id number] ity of [place] [facility] 4.2.7.2.686 Boaz as [id number] [facility] [address] [place] 2022-01-28 2022-01-28 Telephone HOLLY Paz [id number] Univers 00:00:00 00:00:00 Sammi WAYNE 350.1.13.10 it y of HOSPITAL 4.2.7.2.686 [place] as [id number] [facility] 019 [place] 2022-01-28 2022-01-28 Letter Provider, [facility] [id number] Univers 00:00:00 00:00:00 (Out) Andrae Db HEALTH [id number] it y of Urgent Care [place] 4.2.7.2.686 [place] PETE?BLEA [id number] [address] MEDICAL OFFICE [facility] 2022-01-28 2022-01-28 Telephone Nurse, Andrae [facility] [id number] Univers 00:00:00 00:00:00 Db HEALTH [id number] it y of [place] 4.2.7.2.686 Boaz as PETE?BLEA [id number] [address] MEDICAL OFFICE [facility] 2022-01-27 2022-01-27 Laboratory Only, Andrae Singh Test [facility] 1.2.8 [id number] Univers 19:15:00 19:26:41 Only Dax High HEALTH 350.1.13.10 ity of [place] 4.2.7.2.686 Boaz as PETE?BLEA [id number] [address] MEDICAL OFFICE [facility] 2022-01-27 2022-01-27 Outpatient R LENNOX [facility] [id number] Univers 19:15:00 19:15:00 DAX ity of [facility] 2021-12-27 2021-12-27 Office FANY Carmona 1.2.840.114 [id number] [place] 15:15:00 16:18:05 Visit Gudelia LOWE 350.1.13.58 H ealth MEDICAL 9.2.7.2.686 BUILDING [id number] 2021-11-01 2021-11-01 Office MisaelFANY 1.2.840.114 [id number] [place] 09:00:00 10:06:32 Visit Gudelia LOWE [id number] H ealth MEDICAL [id number] BUILDING [id number] 1 2021-09-27 2021-09-27 Office Misael, UTP 1.2.840.114 [id number] [place] 11:30:00 11:43:08 Visit Gudelia LOWE [id number] H ealth MEDICAL 9.2.7.2.686 BUILDING [id number] 1 2021-08-23 2021-08-23 Consult HAMILTONKATIE, UTP 1.2.840.114 [id number] [place] 15:45:00 16:15:00 GUDELIA LOWE 350.1.13.58 H ealth MEDICAL 9.2.7.2.686 [facility] [id number] 1 2021-07-06 2021-07-06 Nutrition Akil, UTP 1.2.840.114 12 [id number] [place] 14:25:32 15:01:31 Joaquin LOWE 350.1.13.58 H ealth MEDICAL 9.2.7.2.686 [facility] [id number] 1 2021-07-06 2021-07-06 Office Israel UTP 1.2.840.114 [id number] [place] 13:40:23 14:22:52 Visit Sarah LOWE 350.1.13.58 H ealth MEDICAL 9.2.7.2.686 [facility] [id number] 1 2021-06-29 2021-06-29 Nutrition Akil, UTP 1.2.840.114 12 [id number] [place] 16:11:16 16:11:57 Joaquin LOWE 350.1.13.58 H ealth MEDICAL 9.2.7.2.686 [facility] [id number] 1 2021-06-23 2021-06-23 Office Nick [place] 1.2.840.114 [id number] Univers 15:15:54 15:45:54 Visit Sendil Yashira.AniyaMame Holly 350.1.13.10 ity of [place]2.[place] [phone] Ia dical nal 059 [facility] 2021-06-23 2021-06-23 Outpatient R NICK, [facility] [id number] Univers 15:00:00 15:00:00 SENDIL ity [facility] 2021-06-23 2021-06-23 Orders Doctor HOLLY 1.2.840.114 [id number] Univers 00:00:00 00:00:00 Only Unassigned, WAYNE 350.1.13.10 ity of [place] [facility] 4.2.7.2.686 Boaz as [phone] [address] 2021-06-22 2021-06-22 Nutrition [place], UTP 1.2.840.114 12 [id number] [place] 16:02:20 16:17:20 Joaquin BELLAIRE 350.1.13.58 H [facility] MEDICAL 9.2.7.2.686 [facility] [id number] 1 2021-06-15 2021-06-15 Nutrition [place], UTP 1.2.840.114 12 [id number] [place] 16:00:18 16:31:19 Joaquin BELLAIRE 350.1.13.58 [facility] 9.2.7.2.686 [facility] [id number] 1 2021-06-08 2021-06-08 Nutrition [place], UTP 1.2.840.114 12 [id number] [place] 16:04:54 16:16:44 Joaquin BELLAIRE 350.1.13.58 [facility] MED[facility] 9.2.7.2.686 [facility] [id number] 1 2021-06-07 2021-06-07 Patient Doctor [facility] 1.2.840.114 [id number] Univers 00:00:00 00:00:00 Secure Msg Unassigned, [place] 350.1.13.10 ity of [place]2.[place].2.[place] [id number] Ia dical NAL 059 [facility] 2021-06-04 2021-06-04 Orders Doctor HOLLY 1.2.840.[id number] [place] [address] 00:00:00 00:00:00 Only Unassigned, WAYNE 350.1.13.10 ity of [place] [facility] 4.2.7.2.686 [place] as [phone] [address] 2021-06-02 2021-06-02 Telephone Nick [facility] [id number] 2031 [facility] 00:00:00 00:00:00 Sendil Alan Holly 350.1.13.10 ity of [place].2.[place] [phone] Ia dical nal 059 [facility] 2021-06-01 2021-06-01 Nutrition Tangu[place], UTP 1.2.840.114 12 [id number] [place] 16:08:13 16:23:13 Joaquin DREWE 350.1.13.58 H ealt MEDICAL 9.2.7.2.686 [facility] [id number] 1 2021-05-26 2021-05-26 Nutrition [place], UTP 1.2.840.114 12 [id number] [place] 15:56:58 16:11:58 Joaquin DREWE 350.1.13.58 H ealth MEDICAL 9.2.7.2.686 [facility] [id number] 1 2021-05-19 2021-05-19 Nutrition Clarico, UTP 1.2.840.114 12 [id number] [place] 16:05:28 16:12:46 Joaquin BELLAIRE 350.1.13.58 H ealth MEDICAL 9.2.7.2.686 [facility] [id number] 1 2021-05-12 2021-05-12 Telephone FANY Carmona 1.2.840.114 126 [id number] [place] 00:00:00 00:00:00 Gudelia LOWE 350.1.13.58 H ealth MEDICAL 9.2.7.2.686 [facility] [id number] 1 2021-05-12 2021-05-12 Telephone FANY Carmona 1.2.840.114 126 [id number] [place] 00:00:00 00:00:00 Gudelia LOWE 350.1.13.58 H ealth MEDICAL 9.2.7.2.686 [facility] [id number] 1 2021-05-11 2021-05-11 Nutrition Akil, UTP 1.2.840.114 12 [id number] [place] 16:06:29 16:31:18 Joaquin LOWE 350.1.13.58 H ealth MEDICAL 9.2.7.2.686 [facility] [id number] 1 2021-05-04 2021-05-04 Nutrition [place], UTP 1.2.840.114 12 [id number] [place] 16:03:22 16:18:22 Joaquni LOWE 350.1.13.58 H ealt MEDICAL 9.2.7.2.686 [facility] [id number] 1 2021-04-27 2021-04-27 Nutrition Akil, UTP 1.2.840.114 12 [id number] [place] 16:56:29 16:56:45 Joaquin LOWE 350.1.13.58 H ealth MEDICAL 9.2.7.2.686 [facility] [id number] 1 2021-04-19 2021-04-19 Office FANY Carmona 1.2.840.114 [id number] [place] 15:50:40 16:45:20 Visit Gudelia LOWE 350.1.13.58 [facility] MEDICAL 9.2.7.2.686 [facility] [id number] 1 2020-12-03 2020-12-03 Patient Jose [facility] 1.2.840.114 [id number] Univers 00:00:00 00:00:[address] [facility] 350.1.13.10 ity of [place] 4.2.7.2.686 Boaz as PROFESSIO [phone] Ia dical [facility] [address] OFFICE BUILDING ONE 2020-11-23 2020-11-23 Patient Angel [facility] 1.2.840.114 [id number] 00:00:00 00:00:00 [facility] 350.1.13.10 Chaz [facility] 4.2.7.2.686 PAVILLION [id number] 388 2019-10-24 2019-10-24 [facility]phone [email or web address] [id number] [id number] 00:00:00 00:00:00 Kaushik Avni 350.1.13.10 [place] 4.2.7.2.686 Professio [phone] [address] 2019-10-15 2019-10-15 Telephone [email or web address] [id number] 00:00:00 00:00:00 Sendashlee EstrellaAniyaMame Holly 350.1.13.10 [place] 4.2.7.2.686 Professio [phone] [address] 2019-10-11 2019-10-11 Laboratory 1, Adc Cardio Fac Room [facility] 1.2.840.114 [id number] 09:26:03 12:05:56 Only Pc, Adc Echo Room 1 - Avni 350.1.1 3.10 [place] 4.2.7.2.686 Professio [phone] [address] 2019-10-11 2019-10-11 Orders Doctor HOLLY 1.2.840.114 [id number] 00:00:00 00:00:00 Only Unassigned, WAYNE 350.1.13.10 [place] [facility] 4.2.7.2.686 [id number] [id number] 2019-09-27 2019-09-27 Outpatient R NICK [facility] [id number] Univers 15:00:00 15:56:27 SENDIL tavo [facility] 2019-09-27 2019-09-27 Office [email or web address] 1.2.840.114 [id number] Univers 14:57:21 15:56:27 [facility]13.10 [facility].2.7[facility]2.[facility] Marco waldrop Professio [phone] Ia dical [address] 2019-08-19 2019-08-19 Outpatient R RADIOLOGY [facility] [id number] Univers 08:23:40 23:59:00 [facility] [place] [facility] Test Description Test Time Test Comments Results Result Comments Source TROPONIN I 2022-02-05 23:06:14 Test Item Value Reference Range Interpretation Comme nts TROPONIN I (test code = <0.012 See_Comment [Au tomated message] The [id number]) system which ge nerated this result tra nsmitted reference range : <=0.034 ng/mL. The refe rence range was not u sed to interpret this result as normal/abnormal . JESSE (test code = JESSE) Reference (Normal) Range (defined by the 99th percentile reference limit): <= 0.034 ng/mL Note: Cardiac troponin begins to rise 3-4 hours after the onset of ischemia. Repeat in 4-6 hours if the sample was drawn within 3-4 hours of the onset of the symptom and found normal. Diagnosis of myocardial injury is made with acute changes in cTn concentrations with at least one serial sample above the 99th percentile upper reference limit (URL), taken together with the patient's clinical presentation. Biotin has been reported to cause a negative bias, interpret results relative to patient's use of biotin. Lab Interpretation Normal (test code = 59858-5) [facility]. METABOLIC PANEL (75252)2022-02-05 22:55:36 Test Item Value Reference Range Interpretation Comments NA (test code = 137 mmol/L 135-145 2006843539) K (test code = 4.2 mmol/L 3.5-5.0 5035025440) CL (test code = 106 mmol/L 98-108 8043225339) CO2 TOTAL (test code 25 mmol/L 23-31 = 9815197139) AGAP (test code = 2-16 1251859505) BUN (test code = 12 mg/dL 7-23 9079833450) GLUCOSE (test code = 100 mg/dL 70-110 1555943798) CREATININE (test code 0.62 mg/dL 0.50-1.04 = 8993381275) TOTAL BILI (test code 0.6 mg/dL 0.1-1.1 = 9633349126) CALCIUM (test code = 9.1 mg/dL 8.6-10.6 1158101229) T PROTEIN (test code 6.8 g/dL 6.3-8.2 = 5294073672) ALBUMIN (test code = 4.2 g/dL 3.5-5.0 2304852222) ALK PHOS (test code = 57 U/L 34-122 2142260113) ALTv (test code = 14 U/L 5-35 1742-6) AST(SGOT) (test code 22 U/L 13-40 = 0444410516) eGFR (test code = mL/min/1.73m2 8640494666) JESSE (test code = JESSE) Association of Glomerular Filtration Rate (GFR) and Staging of Kidney Disease* + + +- +| GFR (mL/min/1.73 m2) ?| With Kidney Damage ?| ?Without Kidney Damage+ ------+ ----+ ------+| ?>90 ?| ?Stage one ?| ? Normal ?+ -+ + -+| ?60-89 ?| ?Stage two ?| ? Decreased GFR ? + + +- +| ?30-59 ?| ?Stage three ?| ? Stage three ? + + +- +| ?15-29 ?| ?Stage four ? | ? Stage four ?+ -+ + -+| ?<15 (or dialysis) ? ?| ?Stage five ? | ? Stage five ?+ -+ + -+ *Each stage assumes the associated GFR level has been in effect for at least three months. ?Stages 1 to 5, with or without kidney disease, indicate chronic kidney disease. Notes: Determination of stages one and two (with eGFR >59mL/min/1.73 m2) requires estimation of kidney damage for at least three months as defined by structural or functional abnormalities of the kidney, manifested by either:Pathological abnormalities or Markers of kidney damage (including abnormalities in the composition of the blood or urine or abnormalities in imaging tests). [facility] 22:54:36 Test Item Value Reference Range Interpretation Comments LIPASE (test code = 4557483038) 69 U/L 0-220 Lab Interpretation (test code = Normal 28887-6) [facility] WITH [id number] 22:42:34 Test Item Value Reference Range Interpretation Comments WBC (test code = See_Comment [Automated 7190-2) message] The sy stem which generated this result transmitted reference range : 4.30 - 11.10 10*3/?L. The reference range was not used to interpret this result as normal/abnormal . RBC (test code = See_Comment L [Automated 789-8) message] The sy stem which generated this result transmitted reference range : 3.93 - 5.25 10*6/?L. The reference range was not used to interpret this result as normal/abnormal . HGB (test code = 10.8 g/dL 11.6-15.0 L 718-7) HCT (test code = 32.9 % 35.7-45.2 L 4544-3) MCV (test code = 84.6 fL 80.6-95.5 787-2) MCH (test code = 27.8 pg 25.9-32.8 785-6) MCHC (test code = 32.8 g/dL 31.6-35.1 786-4) RDW-SD (test code = 45.5 fL 39.0-49.9 24597-4) RDW-CV (test code = 14.9 % 12.0-15.5 788-0) PLT (test code = See_Comment [Automated 777-3) message] The sy stem which generated this result transmitted reference range : 166 - 358 10*3/ ?L. The reference r evon was not used to interpret this result as normal/abnormal . MPV (test code = 12.2 fL 9.5-12.9 69855-9) NRBC/100 WBC (test See_Comment [Automat ed code = 0093896440) message] The system which generated this result transmitted reference range : 0.0 - 10.0 /100 WBCs. The refer ence range was not u sed to interpret th is result as normal/abnormal . NRBC x10^3 (test code <0.01 See_Comment [Auto mated = 1767653966) message] The s ystem which generated this result transmitted reference range : 10*3/?L. The reference range was not used to interpret this result as normal/abnormal . GRAN MAT (NEUT) % 51.7 % (test code = 770-8) IMM GRAN % (test code 0.30 % = 5388818880) LYMPH % (test code = 21.7 % 736-9) MONO % (test code = 8.1 % 5905-5) EOS % (test code = 17.2 % 713-8) BASO % (test code = 1.0 % 706-2) GRAN MAT x10^3(ANC) 3.58 10*3/uL 1.88-7.09 (test code = 4273227707) IMM GRAN x10^3 (test <0.03 0.00-0.06 code = 7233485243) LYMPH x10^3 (test code 1.50 10*3/uL 1.32-3.29 = 731-0) MONO x10^3 (test code 0.56 10*3/uL 0.33-0.92 = 742-7) EOS x10^3 (test code = 1.19 10*3/uL 0.03-0.39 H 711-2) BASO x10^3 (test code 0.07 10*3/uL 0.01-0.07 = 704-7) Lab Interpretation Abnormal (test code = 62807-4) [facility] [id number] 22:15:00 Test Item Value Reference Range Interpretation Comments POCT PREG (test code = 1605) Negative On board controls acceptable with Present C Line (test code = 3574) POCT PREG LOT # (test code = 3575) [id number] POCT PREG TEST DATE (test 07/04/23 code = 3576) Lab Interpretation (test code = Normal 91734-2) [facility] [id number] 18:00:00 Test Item Value Reference Range Interpretation Comments VITAMIN A See_Comment Clin Chem Vol . (RETINOL) 34.No.8. cn4181 -1628. (test code = 1998Vitamin 2923-1) supplementation within 24 hours prior to blood draw m ay affect the accu racy of results. ? T his test was develo ped and its analyti carlos alberto performance characteristics have been determined by [employer]. It has not been cl eared or approved by theFDA. This as say has been valida anna pursuant to the CLIA regulations and is used for clinic al purposes. [Auto mated message] The sy stem which generated this result transmit anna reference range : 38 - 98 mcg/dL. The reference range was not used to int erpret this result as normal/abnormal . RAC (test code Performing = RAC) Organization Information: ? ?Site ID: SLI ? ?Name: [facility] [facility] ? ?Address: [address] [place] [address] ? ?Director: JU DEL ROSARIO MD [place] HealthVitamin [id number] 18:00:00 Test Item Value Reference Range Interpretation Comments ALPHA-TOCOPH mg/L ? ? ?Reference Range DANUTA (test ? ? ?5.7-19.9 m g/L ? ? code = ?Levels o f 1823-4) alpha-tocophero l <5 mg/L are ? ? ?consistent wit h Vitamin E defic iency in ? ? ?adults. Vitamin supplementation within 24 hours prior to blood draw may affect the accuracy of results. ? ? Th is test was developed a nd its analytical perf ormance characteristics have been determined by [employer]. It has not been cl eared or approved by theFDA. This assay has been validated pursu ant to the CLIA regula tions and is used for clinical purpos es. [id number] See_Comment This test was OCOPHEROL developed and i ts (test code = analytical perf ormance 43019-8) characteristics have been determined by [employer] [facility] ([employer]. It has not been cl eared or approved by theFDA. This assay has been validated pursu ant to the CLIA regula tions and is used for clinical purpos es. [Automated mess age] The system [employer]) generated this result transmitted ref erence range: <4.4 mg/ L . The reference range was not used to int erpret this result as normal/abnormal . RAC (test Performing code = RAC) Organization Information: ? ?Site ID: SLI ? ?[facility] ? ?Address: [address] [place] [address] ? ?Director: JU DEL ROSARIO MD [place] Health[facility]itamin B1, whole [id number] 23:00:00 Test Item Value Reference Range Interpretation Comments VITAMIN B1 93 nmol/L 78-185 Vitamin (THIAMINE), supplementation BLOOD, within 24 hours prior LC/MS/MS (test toblood draw may code = affect the accu racy 42913-6) of results. Thi s test was developed a nd its analytical performance characteristics have been determined by [employer]. It has not been cl eared or approved by theA. This as say has been valida anna pursuant to the CLIA regulations and is used for clinic al purposes. RAC (test code Performing = RAC) Organization Information: ? ?Site ID: SLI ? ?Name: [employer] [facility] ? ?Address: [address] [place] [address] ? ?Director: JU DEL ROSARIO MD [facility] 25-OH VIT D, (D2,D3)2021-04-30 17:00:00 Test Item Value Reference Interpretation Comments Range VITAMIN D, 31 ng/mL 30-100 (Note) ?Vitamin D, 25-Hydroxy 25-OH, reports concent rations of two TOTAL (test ?common forms, 25-OHD2 and code = 25-OHD3. 25-OHD 3 indicates 57679-6) ?both endogenou s production and supplementa tion. ?25-OHD2 is an indicator of exogenous sources such as ?diet or supplementation . ?Therapy is based on ?measu rement of Total 25-OHD, with le vels <20 ng/mL ?indicative of Vitamin D deficiency, whi le levels ?between 20 ng/ mL and 30 ng/mL suggest insuffi ciency. ?Optimal levels are > or = 30 ng/mL. ?Vitamin D is fat-soluble and therefore inadvertent or ?intentional ingestion of ex cessively high amounts ?could be toxic. Studies in chil dren and adults suggest ?blood levels would need to exceed 150 ng/mL before ?there i s any concern. Ramakrishna MF, Gerardo jeffery NC, ?Diamond-erickson DELACRUZ, et al. Evaluation, catracho atment and ?prevention of vitamin D deficiency: an Endocrine ?Society clinic al practice guideline. J Cl in Endocrinol ?Metab. 2011;96 (7):1911-30. ?For additional information, please refer to ?http://educati on.[employer]/faq/FA Q199 VITAMIN D, 31 ng/mL Reference range : Not 25-OH, D3 established (test code = 1989-09) VITAMIN D, <4.0 ng/mL (Note)Reference range: Not 25-OH, D2 established Thi s test was (test code developed and i ts analytical = 2236-8) performancechar acteristics have been deter mined by [employer]. It h as not beencleared or approved by the US Food and Alexander g Administration. Thisassay has been validated pursuant to the CLIA regulation and is usedfor Clinical purpos es.MDFmed [address] [place] [place] [address],[address] [id number] 00MicLiat Paz ote 1 Note 1 For additional information, please refer to http://educatio n.[employer].com/faq/FAQ 199 (This link is being provid ed for informational/e ducational purposes only.) RAC (test Performing code = RAC) Organization Information: ? ?Site ID: [id number] ? ?Name: [facility] ? ?Address: [address] [place] [address] [place] [address] ? ?Director: CADEN GOMEZ MD [place] HealthPATHOLOGY [id number] 14:00:00 Test Item Value Reference Range Interpretation Comments PATHOLOGIST (test SEE NOTE Ju S. code = 00000-9) MD Johann, Board Certified in AnatomicPatholo g y, (electronic signature) RAC (test code = Performing RAC) Organization Information: ? ?Site ID: RGA ? ?Name: [employer] [facility] ? ?Address: [address] [place] [address] ? ?Director: KIRK PAULA MD [facility], SPECIMEN [id number] 14:00:00 Test Item Value Reference Range Interpretation Comments Source (test code SEE NOTE PATHOLOGY REVIEW = 11703-6) OF PERIPHERAL BLOOD SMEAR A MICRO SEE NOTE The peripheral DESCRIPTION (test blood smea r has code = 18409-4) been reviewe d. A DIAGNOSIS (test SEE NOTE White blo od code = 17813-3) cells are wi thin normal limits.Hypochro mi c anemia (see comment). Platelets are adequate. A COMMENT (test SEE NOTE Rule out iro n code = 37653-0) deficiency. RAC (test code = Performing RAC) Organization Information: ? ?Site ID: RGA ? ?Name: [employer] [facility] ? ?Address: [address] [place] [address] ? ?Director: KIRK PAULA MD [place] HealthHemoglobin [id number] 23:00:00 Test Item Value Reference Range Interpretation Comments HEMOGLOBIN A1c See_Comment For the purpo se of (test code = screening for t he 4548-4) presence ofdiab etes: <5.7% ? ? ? Consistent with the absence of diabetes5.7-6.4 % ? ?Consistent wit h increased risk for diabetes ?(prediabetes)> or =6.5% ?Consiste nt with diabetes T his assay result is consistent with a decreased risko f diabetes. Curre ntly, no consensus ex ists regarding use ofhemoglobin A1 c for diagnosis of di abetes in children. According to [place] er[place] Diabetes Associ ation (ADA)guidelines , hemoglobin A1c <7.0% represents optimalcontrol in non- di abetic patients. Differentmetric s may apply to specif ic patient populat ions. Standards of Me dical Care in Diabetes(ADA). ? [Automated mess age] The system [employer] generated this result transmitted ref erence range: <5.7 % o f total Hgb. The reference range was not used to int erpret this result as normal/abnormal . RAC (test code = Performing RAC) Organization Information: ? ?Site ID: RGA ? ?Name: [employer] [facility] ? ?Address: [address] [place] [address] ? ?Director: KIRK PAULA MD [place] HealthPTH, [id number] 22:00:00 Test Item Value Reference Interpretation Comments Range PARATHYROID 74 pg/mL 14-64 H Interpretive G uide ? HORMONE, INTACT ?Intact PTH ? (test code = Calcium-------- 2731-8) ? -------Normal P arathyroid ? ?Normal ? NormalHypoparat hyroidism ? ?Low or Low [place] mal ? ?LowHyperparath yroidism ? Primary ?Normal or High ? ? ? H igh ? Secondary ?High ? N ormal or Low ? Tertiary ? High ? HighNon-Parathy roid ? Hypercalcemia ? ? ?Low or Low Normal ? ?H igh RAC (test code = Performing RAC) Organization Information: ? ?Site ID: RGA ? ?Name: [employer] [facility] ? ?Address: [address] [place] [address] ? ?Director: KIRK PAULA MD Lab Abnormal Interpretation (test code = 35611-0) [facility] (INCLUDES DIFF/PLT) WITH PATHOLOGIST [id number] 16:00:00 Test Item Value Reference Interpretation Comments Range WHITE BLOOD CELL See_Comment [Automated message] COUNT (test code = The syste m which 6690-2) generated this result transmitted ref erence range: 3.8 - 10 .8 Thousand/uL. Th e reference range was not used to int erpret this result as normal/abnormal . RED BLOOD CELL See_Comment [Automated m essage] COUNT (test code = The syste m which 789-8) generated this result transmitted ref erence range: 3.80 - 5 .10 Million/uL. The reference range was not used to int erpret this result as normal/abnormal . HEMOGLOBIN (test 11.2 g/dL 11.7-15.5 L code = 718-7) HEMATOCRIT (test 35.5 % 35.0-45.0 code = 4544-3) MCV (test code = 83.3 fL 80.0-100.0 787-2) MCH (test code = 26.3 pg 27.0-33.0 L 785-6) MCHC (test code = 31.5 g/dL 32.0-36.0 L 786-4) RDW (test code = 14.6 % 11.0-15.0 788-0) PLATELET COUNT See_Comment [Automated m essage] (test code = 777-3) The syst em which generated this result transmitted ref erence range: 140 - 40 0 Thousand/uL. Th e reference range was not used to int erpret this result as normal/abnormal . MPV (test code = 11.1 fL 7.5-12.5 776-5) ABSOLUTE See_Comment [Automated mes josh] NEUTROPHILS (test The system which code = 751-8) generated this result transmitted ref erence range: 1500 - 7 800 cells/uL. The reference range was not used to int erpret this result as normal/abnormal . ABSOLUTE See_Comment [Automated mes josh] LYMPHOCYTES (test The system which code = 731-0) generated this result transmitted ref erence range: 850 - 39 00 cells/uL. The reference range was not used to int erpret this result as normal/abnormal . ABSOLUTE MONOCYTES See_Comment [Automat ed message] (test code = 742-7) The syst em which generated this result transmitted ref erence range: 200 - 95 0 cells/uL. The reference range was not used to int erpret this result as normal/abnormal . ABSOLUTE See_Comment L [Automated mes josh] EOSINOPHILS (test The system which code = 711-2) generated this result transmitted ref erence range: 15 - 500 cells/uL. The reference range was not used to int erpret this result as normal/abnormal . ABSOLUTE BASOPHILS See_Comment [Automat ed message] (test code = 704-7) The syst em which generated this result transmitted ref erence range: 0 - 200 cells/uL. The reference range was not used to int erpret this result as normal/abnormal . NEUTROPHILS (test 70 % code = 770-8) LYMPHOCYTES (test 24 % code = 736-9) MONOCYTES (test 6 % code = 5905-5) EOSINOPHILS (test 0 % code = 713-8) BASOPHILS (test 0 % code = 706-2) COMMENT (S) (test SEE NOTE Review of the code = 8251-1) peripheral sm ear revealsadequate numbers of plat elets. The smear has b een manually review ed and the manualdiffe rential has been reported.Final report pending patholo gist review. RAC (test code = Performing RAC) Organization Information: ? ?Site ID: RGA ? ?Name: [facility] ? ?Address: [address] [place] [phone] ? ?Director: KIRK PAULA MD Lab Interpretation Abnormal (test code = 20296-6) [id number]:00 Test Item Value Reference Range Interpretation Comments FOLATE, SERUM 10.1 ng/mL ? (test code = ? Referen ce 2284-8) Range ? L ow: ? <3.4 ? Borderline: ? ?3.4-5.4 ? Normal: ?>5.4 RAC (test code Performing = RAC) Organization Information: ? ?Site ID: RGA ? ?Name: [facility] ? ?Address: [address] [place] [phone] ? ?Director: KIRK PAULA MD [place] [facility] [id number] 09:00:00 Test Item Value Reference Interpretation Comments Range VITAMIN B12 347 pg/mL 200-1100 Please Note: A lthough the (test code = reference range for 2132-05) [id number] is 2 00-1100 pg/mL, it has b een reported that between5 a nd 10% of patients with v alues between 200 and 400pg/m L may experience neur opsychiatric and hematologic abnormalities due to occult B 12 deficiency; les s than 1%of patients with v alues above 400 pg/mL will have symptoms. RAC (test Performing code = RAC) Organization Information: ? ?Site ID: RGA ? ?Name: [facility] ? ?Address: [address] [place] [phone] ? ?Director: KIRK PAULA MD [facility] [id number] 08:00:00 Test Item Value Reference Range Interpretation Comments GLUCOSE (test code 93 mg/dL 65-99 ? = 2345-7) Fasting referen ce interval UREA NITROGEN 12 mg/dL 7-25 (BUN) (test code = 3094-0) CREATININE (test 0.83 mg/dL 0.50-1.10 code = 2160-0) eGFR NON- See_Comment [Automated SAO TOMEAN (test message] The code = 42398-3) system which generated this result transmitted reference range : > OR = 60 mL/min/1.73m2. The reference range was not used to interpr et this result as normal/abnormal . eGFR See_Comment [Automated SAO TOMEAN (test message] The code = 49715-7) system which generated this result transmitted reference range : > OR = 60 mL/min/1.73m2. The reference range was not used to interpr et this result as normal/abnormal . BUN/CREATININE NOT APPLICABLE See_Comment [Automated RATIO (test code = message] The 3097-3) system which generated this result transmitted reference range : 6 - 22 (calc). The reference range was not used to interpr et this result as normal/abnormal . SODIUM (test code 138 mmol/L 135-146 = 2951-2) POTASSIUM (test 4.5 mmol/L 3.5-5.3 code = 2823-3) CHLORIDE (test 103 mmol/L 98-110 code = 2075-0) CARBON DIOXIDE 27 mmol/L 20-32 (test code = 2027-9) CALCIUM (test code 9.4 mg/dL 8.6-10.2 = 64115-1) PROTEIN, TOTAL 6.9 g/dL 6.1-8.1 (test code = 2885-2) ALBUMIN (test code 4.2 g/dL 3.6-5.1 = 1751-7) GLOBULIN (test See_Comment [Automated code = 23430-8) message] The system which generated this result transmitted reference range : 1.9 - 3.7 g/dL (calc). The reference range was not used to interpret this result as normal/abnormal . ALBUMIN/GLOBULIN See_Comment [Automated RATIO (test code = message] The 1759-0) system which generated this result transmitted reference range : 1.0 - 2.5 (calc ). The reference range was not used to interpr et this result as normal/abnormal . BILIRUBIN, TOTAL 0.4 mg/dL 0.2-1.2 (test code = 1975-2) ALKALINE 63 U/L 31-125 PHOSPHATASE (test code = 6768-6) AST (test code = 13 U/L 07-030-8) ALT (test code = 13 U/L 03-02 1742-6) RAC (test code = Performing RAC) Organization Information: ? ?Site ID: RGA ? ?Name: [facility] ? ?Address: [address] [place] [phone] ? ?Director: KIRK PAULA MD [place] [facility] [id number] 08:00:00 Test Item Value Reference Range Interpretation Comments CHOLESTEROL, TOTAL 214 mg/dL <200 H (test code = 2093-3) HDL CHOLESTEROL 51 mg/dL See_Comment [Automated (test code = 2085-9) message ] The system which generated this result transmitted reference range : > OR = 50. The reference range was not used to interpret this result as normal/abnormal . TRIGLYCERIDES (test 148 mg/dL <150 code = 2571-8) LDL-CHOLESTEROL mg/dL (calc) H Reference ra nge: (test code = <100 Desirable 58082-2) range <100 mg/d L for primary prevention; ?<7 0 mg/dL for patients with C HD or diabetic patients with > or = 2 CHD risk factors. LDL-C is now calculated using the Adiel-Adalgisa calculation, which is a validated novel method providin g better accuracy than the Friedewald equation in the estimation of LDL-C. Adiel S S et al. MARLA. 2013;310(19): 7114-9917 (http://educati on .ChannelkitDiagnostIntelliworks .com/faq/XPZ611 ) CHOL/HDLC RATIO See_Comment [Automated (test code = 9830-1) message ] The system which generated this result transmitted reference range : <5.0 (calc). Th e reference range was not used to interpret this result as normal/abnormal . NON HDL CHOLESTEROL See_Comment H For nba ents with (test code = diabetes plus 1 04809-1) major ASCVD ris k factor, treatin g to a non-HDL-C goal of <100 mg/dL (LDL-C of <70 mg/dL) is considered a therapeutic option. [Automated message] The system which generated this result transmitted reference range : <130 mg/dL (calc). The reference range was not used to interpret this result as normal/abnormal . RAC (test code = Performing RAC) Organization Information: ? ?Site ID: RGA ? ?Name: [facility] ? ?Address: [address] [place] [phone] ? ?Director: KIRK PALUA MD Lab Interpretation Abnormal (test code = 25596-1) [facility] and [id number] 08:00:00 Test Item Value Reference Range Interpretation Comments IRON, TOTAL (test See_Comment [Automate d code = 2498-4) message] The system which generated this result transmit anna reference range : 40 - 190 mcg/dL . The reference range was not u sed to interpret th is result as normal/abnormal . IRON BINDING See_Comment [Automated CAPACITY (test message] The code = 2500-7) system which generated this result transmit anna reference range : 250 - 450 mcg/d L (calc). The reference range was not used to interpret this result as normal/abnormal . % SATURATION See_Comment [Automated (test code = message] The 2502-3) system which generated this result transmit anna reference range : 16 - 45 % (calc ). The reference range was not u sed to interpret th is result as normal/abnormal . RAC (test code = Performing RAC) Organization Information: ? ?Site ID: RGA ? ?Name: [facility] ? ?Address: [address] [place] [phone] ? ?Director: KIRK PAULA MD [facility] W/REFLEX TO [id number] 08:00:00 Test Item Value Reference Range Interpretation Comments TSH W/REFLEX mIU/L ? TO FT4 (test ?Reference Rang e ? code = 3016-3) ?> or = 20 Years ?0.40-4.50 ? Range s ?First trimester ? ?0.26-2.66 ?Second trimest er ? 0.55-2.73 ?Third tr[address] ter ? ?0.43-2.91 RAC (test code Performing = RAC) Organization Information: ? ?Site ID: RGA ? ?Name: [facility] ? ?Address: [address] [place] [phone] ? ?Director: KIRK PAULA MD [facility]"
[2023-07-30 21:04] LABS: Absolute Lymphocytes (CBC) 2.9 K/uL (0.7-4.9); Hematocrit 29.5 % (36.0-45.0); Lymphocytes % 40.7 % (15.3-44.8); MCV 74.1 fL (80-100); Platelets 344 thou/uL (152-406); RBC Red Blood Cell Count 3.98 M/uL (3.86-4.86)
[2023-07-30 21:09] LABS: Specific Gravity 1.007 (1.005-1.030); Urine Bilirubin NEGATIVE (Negative); Urine Blood Negative (Negative); Urine Clarity Clear (Clear); Urine Color Colorless (Yellow); Urine Glucose NEGATIVE (Negative); Urine Protein NEGATIVE (Negative); Urine Urobilinogen Normal (Normal)
[2023-07-30 21:13] LABS: Specific Gravity 1.007 (1.005-1.030)
[2023-07-30 21:21] LABS: Bilirubin Total 0.4 mg/dL (0.2-1.0); Potassium 3.7 mEq/L (3.5-5.1); Protein, Total 7.8 g/dL (6.4-8.2)
[2023-07-30] MEDS ORDERED: NA CHLORIDE 0.9% 1,000 ML ONE (22:12)
[2023-07-30] MEDS ORDERED: KETOROLAC 30 MG/ML INJ ONE (22:12)
--- NOTE | 2023-07-30 22:23 | RAD REPORT ---
EXAM DESCRIPTION: CT - Abdomen Pelvis W Contrast - 07/30/2023 9:52 pm CLINICAL HISTORY: llq abdomen pain COMPARISON: No comparisons TECHNIQUE: Thin cut axial CT imaging of the abdomen and pelvis was performed following intravenous a dministration of 100 mL Isovue 300. Multiplanar reformats were generated and reviewed. All CT scans are performed using dose optimization technique as appropriate and may include automated exposure control or mA/KV adjustment according to patient size. FINDINGS: No suspicious findings in the lung bases. The liver, spleen, and pancreas show no suspicious findings apart from benign-appearing sub centimete r small hepatic cystic lesion, difficult to characterize given size. Gallbladder and biliary tree are also without suspicious finding. Symmetric renal function is seen with no hydronephrosis or suspicious renal mass. Sequelae of gastric bypass. No dilated bowel loops or bowel wall thickening. No free air, fluid colle ctions, or inflammatory stranding. No hernia, mass or bulky lymphadenopathy. A dominant marginally en hancing left ovarian cyst or follicle, measuring 2.3 cm in greatest dimension. Trace free pelvic flui d, likely physiologic. The urinary bladder is without significant finding. No suspicious bony findings. IMPRESSION: No acute intra-abdominal process.
--- NOTE | 2023-07-30 23:13 | ER ---
Nurse's Notes [facility] Name: Shimon Granger Age: 38 yrs Sex: Female : 1985 Arrival Date: 07/30/2023 Time: 18:12 Bed 15 Private MD: None, None Diagnosis: Constipation;Other and unspecified ovarian cysts;Anemia, unspecified Presentation: 07/30 18:19 Chief complaint: Patient states: LEFT SIDED LOWER ABDOMINAL PAIN GETTING WORSE. LAST db BOWEL MOVEMENT TODAY WITH A "FEW BLANCA". STATES HAS CONSTIPATION. TODAY FELT LIKE ABDOMEN WAS BULGING ON LEFT LOWER SIDE STARTED TODAY. Coronavirus screen: Vaccine status: Patient reports receiving the 2nd dose of the covid vaccine. Client denies travel out of the [place] in the last 14 days. At this time, the client does not indicate any symptoms associated with coronavirus-19. Ebola Screen: Patient negative for fever greater than or equal to 101.5 degrees Fahrenheit, and additional compatible Ebola Virus Disease symptoms Patient denies exposure to infectious person. Patient denies travel to an Ebola-affected area in the 21 days before illness onset. No symptoms or risks identified at this time. Initial Sepsis Screen: Does the patient meet any 2 criteria? No. Patient's initial sepsis screen is negative. Does the patient have a suspected source of infection? No. Patient's initial sepsis screen is negative. Risk Assessment: Do you want to hurt yourself or someone else? Patient reports no desire to harm self or others. Onset of symptoms was July 30, 2023. 18:19 Method Of Arrival: Ambulatory db 18:19 Acuity: KETAN 3 db Triage Assessment: 18:21 General: Appears in no apparent distress. uncomfortable, Behavior is calm, cooperative. db Pain: Complains of pain in abdomen, LEFT LOWER QUADRANT. Neuro: Level of Consciousness is awake, alert, obeys commands, Oriented to person, place, time, situation. Respiratory: Airway is patent Respiratory effort is even, unlabored, Respiratory pattern is regular, symmetrical. GI: Reports lower abdominal pain. GI: Abdomen is flat, non-distended, Last BM was July 30, 2023. Historical: - Allergies: 18:21 No Known Allergies; db - Home Meds: 18:21 None [Active]; db - PMHx: 18:21 None; db - PSHx: 18:21 section; db - Immunization history:: Adult Immunizations unknown. - Social history:: Smoking status: Patient denies any tobacco usage or history of. Screenin:13 [facility] ED Fall Risk Assessment (Adult) History of falling in the last 3 months, km8 including since admission No falls in past 3 months (0 pts) Confusion or Disorientation No (0 pts) Intoxicated or Sedated No (0 pts) Impaired Gait No (0 pts) Mobility Assist Device Used No (0 pt) Altered Elimination No (0 pt) Score/Fall Risk Level 0 - 2 = Low Risk Oriented to surroundings, Maintained a safe environment, Educated pt \\T\\ family on fall prevention, incl call for assistance when getting out of bed, Assessed \\T\\ reinforced patient's understanding of fall precautions. Abuse screen: Denies threats or abuse. Denies injuries from another. Nutritional screening: No deficits noted. Tuberculosis screening: No symptoms or risk factors identified. Assessment: 22:13 General: Appears in no apparent distress. comfortable, Behavior is calm, cooperative, km8 appropriate for age. Pain: Denies pain. Neuro: Parry Agitation-Sedation Scale (RASS): 0 - Alert and Calm Level of Consciousness is awake, alert, obeys commands, Oriented to person, place, time, situation. Cardiovascular: Denies chest pain, shortness of breath. Respiratory: Airway is patent Respiratory effort is even, unlabored, Respiratory pattern is regular, symmetrical. GI: No signs and/or symptoms were reported involving the gastrointestinal system. : No signs and/or symptoms were reported regarding the genitourinary system. EENT: No signs and/or symptoms were reported regarding the EENT system. Derm: No signs and/or symptoms reported regarding the dermatologic system. Skin is intact, is healthy with good turgor, Skin is dry, Skin is pink, warm \\T\\ dry. normal, Skin temperature is warm. Musculoskeletal: No signs and/or symptoms reported regarding the musculoskeletal system. Range of motion: intact in all extremities. 22:52 Reassessment: Patient appears in no apparent distress at this time. Patient and/or km8 family updated on plan of care and expected duration. Pain level reassessed. Patient is alert, oriented x 3, equal unlabored respirations, skin warm/dry/pink. Patient states symptoms have improved. Vital Signs: 18:19 BP 119 / 63; Pulse 78; Resp 16; Temp 98.2(O); Pulse Ox 96% ; Weight 54.43 kg; Height 5 db ft. 0 in. ; Pain 0/10; 22:13 BP 108 / 56; Pulse 62; Resp 16; Pulse Ox 100% on R/A; km8 22:45 BP 108 / 66; Pulse 54; Resp 16 S; Pulse Ox 100% on R/A; km8 23:00 BP 102 / 62; Pulse 58; Resp 16; Pulse Ox 100% on R/A; km8 18:19 Body Mass Index 23.44 (54.43 kg, 152.4 cm) db 18:19 Pain Scale: Adult db Thelma Coma Score: 22:13 Eye Response: spontaneous(4). Motor Response: obeys commands(6). Verbal Response: km8 oriented(5). Total: 15. ED Course: 18:14 Patient arrived in ED. as 18:15 None, None is Private Physician. as 18:21 Triage completed. db 18:23 Arm band placed on left wrist. Patient placed in waiting room. db 18:46 Adis Jenkins PA is PHCP. cp 18:46 Adis Baker MD is Attending Physician. cp 20:51 CBC with Diff Sent. eb1 20:51 CMP Sent. eb1 20:51 Lipase Sent. eb1 20:51 Test, Urine Sent. eb1 20:52 Urinalysis w/ reflexes Sent. eb1 21:52 CT Abd/Pelvis - IV Contrast Only In Process Unspecified. EDMS 22:08 Gia Lindsay, RN is Primary Nurse. km8 22:13 Patient has correct armband on for positive identification. Bed in low position. Call km8 light in reach. Side rails up X 1. Client placed on continuous cardiac and pulse oximetry monitoring. NIBP monitoring applied. 22:13 Patient maintains SpO2 saturation greater than 95% on room air. km8 22:13 Inserted saline lock: 20 gauge in right antecubital area, using aseptic technique. km8 23:11 Gavino Rios MD is Referral Physician. cp 23:30 No provider procedures requiring assistance completed. IV discontinued, intact, km8 bleeding controlled, No redness/swelling at site. Pressure dressing applied. Administered Medications: 22:13 Drug: NS 0.9% IV 1000 ml IV at 1 bolus Per protocol; 1000 mL bolus Route: IV; Rate: 1 km8 bolus; Site: right antecubital; 23:15 Follow up: IV Status: Completed infusion; IV Intake: 1000ml km 22:13 Drug: TORadol - Ketorolac IVP 15 mg IVP once Route: IVP; Site: right antecubital; km8 22:53 Follow up: Response: No adverse reaction; Pain is decreased km 23:26 Drug: Magnesium Citrate PO Liquid 300 ml PO once Route: PO; km8 23:30 Follow up: Response: Medication administered at discharge. km Medication: 23:30 VIS not applicable for this client. km8 Intake: 23:15 IV: 1000ml; Total: 1000ml. Outcome: 23:13 Discharge ordered by MD. cp 23:30 Discharged to home ambulatory, with significant other, 23:30 Condition: good 23:30 Discharge instructions given to patient, significant other, Instructed on discharge instructions, follow up and referral plans. Demonstrated understanding of instructions, follow-up care, 23:31 Patient left the ED. Signatures: Dispatcher [employer] EDMS Carmelita Siddiqi Corey, PA PA cp Basinger, Emily, RN RN eb1 Ludmila Franz, RN RN db Gia Lindsay, CHAU RN km8 Corrections: (The following items were deleted from the chart) 23:16 22:51 BP 108 / 66; Pulse 54bpm; Resp 16bpm; Spontaneous; Pulse Ox 100% RA; km 23:17 23:17 Abuse screen:
--- NOTE | 2023-07-30 23:14 | EDPHYS ---
Physician Documentation [facility] Name: Shimon Granger Age: 38 yrs Sex: Female : 1985 Arrival Date: 07/30/2023 Time: 18:12 Bed 15 Private MD: None, None ED Physician Adis Baker HPI: 07/30 20:20 This 38 yrs old Female presents to ER via Ambulatory with complaints of Abdominal Pain. cp 20:20 The patient presents with abdominal pain in the left lower quadrant. cp 20:20 Onset: The symptoms/episode began/occurred 1 week(s) ago, and became worse today. cp 20:20 Associated signs and symptoms: Pertinent positives: constipation for over a year with cp intermittent blood in stool, Pertinent negatives: diarrhea, dysuria, fever. Historical: - Allergies: 18:21 No Known Allergies; db - Home Meds: 18:21 None [Active]; db - PMHx: 18:21 None; db - PSHx: 18:21 section; db - Immunization history:: Adult Immunizations unknown. - Social history:: Smoking status: Patient denies any tobacco usage or history of. ROS: 20:25 Constitutional: Negative for body aches, chills, fever, poor PO intake, cp 20:25 Eyes: Negative for injury, pain, redness, and discharge, cp 20:25 ENT: Negative for drainage from ear(s), ear pain, sore throat, difficulty swallowing, difficulty handling secretions, 20:25 Cardiovascular: Negative for chest pain, edema, palpitations, 20:25 Respiratory: Negative for cough, shortness of breath, wheezing, 20:25 Abdomen/GI: Positive for abdominal pain, constipation, rectal bleeding, Negative for vomiting, diarrhea, 20:25 Back: Negative for pain at rest, pain with movement, 20:25 Neuro: Negative for altered mental status, dizziness, headache, weakness, 20:25 All other systems are negative, Exam: 20:30 Constitutional: The patient appears in no acute distress, alert, awake, comfortable, cp non-toxic, well developed, well nourished, 20:30 Head/Face: Normocephalic, atraumatic. cp 20:30 Eyes: Periorbital structures: appear normal, Conjunctiva: normal, no exudate, no injection, Sclera: no appreciated abnormality, Lids and lashes: appear normal, bilaterally, 20:30 ENT: External ear(s): are unremarkable, Nose: is normal, Mouth: Lips: moist, Oral mucosa: pink and intact, moist, Posterior pharynx: is normal, airway is patent, no erythema, no exudate, 20:30 Chest/axilla: Inspection: normal, 20:30 Cardiovascular: Rate: normal, Rhythm: regular, 20:30 Respiratory: the patient does not display signs of respiratory distress, Respirations: normal, no use of accessory muscles, no retractions, labored breathing, is not present, Breath sounds: are clear throughout, no decreased breath sounds, no stridor, no wheezing, 20:30 Abdomen/GI: Inspection: abdomen appears normal, Bowel sounds: active, all quadrants, Palpation: soft, in all quadrants, mild abdominal tenderness, in the left lower quadrant, rebound tenderness, is not appreciated, involuntary guarding, is not appreciated, 20:30 Back: pain, is absent, ROM is normal, Vital Signs: 18:19 BP 119 / 63; Pulse 78; Resp 16; Temp 98.2(O); Pulse Ox 96% ; Weight 54.43 kg; Height 5 db ft. 0 in. ; Pain 0/10; 22:13 BP 108 / 56; Pulse 62; Resp 16; Pulse Ox 100% on R/A; km8 22:45 BP 108 / 66; Pulse 54; Resp 16 S; Pulse Ox 100% on R/A; km8 23:00 BP 102 / 62; Pulse 58; Resp 16; Pulse Ox 100% on R/A; km8 18:19 Body Mass Index 23.44 (54.43 kg, 152.4 cm) db 18:19 Pain Scale: Adult db Thelma Coma Score: 22:13 Eye Response: spontaneous(4). Motor Response: obeys commands(6). Verbal Response: km8 oriented(5). Total: 15. MDM: 18:46 Patient medically screened. cp 21:00 Differential diagnosis: appendicitis, bowel obstruction, Endometriosis, non-specific cp abd pain, Ovarian Torsion, Pelvic Inflammatory Disease, Pyelonephritis, Ureterolithiasis, urinary tract infection, ovarian cyst, colon mass. 23:12 Data reviewed: vital signs, nurses notes, lab test result(s), radiologic studies, CT cp scan. 23:12 I considered the following discharge prescriptions or medication management in the emergency department Medications were administered in the Emergency Department. See MAR. Counseling: I had a detailed discussion with the patient and/or guardian regarding the historical points, exam findings, and any diagnostic results supporting the discharge/admit diagnosis, lab results, radiology results, the need for outpatient follow up, a cabana attendant, to return to the emergency department if symptoms worsen or persist or if there are any questions or concerns that arise at home. Special discussion: Based on the patient's Hx, exam, and Dx evaluation, there is no indication for emergent surgery or inpatient Tx. It is understood by the patient/guardian that if the Sx's persist or worsen they need to return immediately for re-evaluation. 07/30 20:19 Order name: CBC with Diff; Complete Time: 21:51 07/30 21:51 Interpretation: Normal except: HGB 9.2; HCT 29.5; MCV 74.1; MCH 23.2; MCHC 31.3; RDW cp 16.3; EOSINOPHIL % 9.5; EOSA 0.7; BASO% 1.4. 07/30 20:19 Order name: CMP; Complete Time: 21:51 cp 07/30 21:51 Interpretation: Normal except: GFR 89; AST 14; GLOB 3.8. 07/30 20:19 Order name: Lipase; Complete Time: 21:51 07/30 20:19 Order name: Test, Urine; Complete Time: 21:51 07/30 20:19 Order name: Urinalysis w/ reflexes; Complete Time: 21:51 07/30 22:16 Interpretation: Normal except: UKET TRACE. 07/30 20:19 Order name: CT Abd/Pelvis - IV Contrast Only; Complete Time: 22:40 cp 07/30 20:19 Order name: IV Saline Lock; Complete Time: 20:51 07/30 20:19 Order name: Labs collected and sent; Complete Time: 20:51 cp Administered Medications: 22:13 Drug: NS 0.9% IV 1000 ml IV at 1 bolus Per protocol; 1000 mL bolus Route: IV; Rate: 1 km8 bolus; Site: right antecubital; 23:15 Follow up: IV Status: Completed infusion; IV Intake: 1000ml km8 22:13 Drug: TORadol - Ketorolac IVP 15 mg IVP once Route: IVP; Site: right antecubital; km8 22:53 Follow up: Response: No adverse reaction; Pain is decreased 8 23:26 Drug: Magnesium Citrate PO Liquid 300 ml PO once Route: PO; 8 23:30 Follow up: Response: Medication administered at discharge. km8 Disposition Summary: 07/30/23 23:13 Discharge Ordered Notes: Location: Home cp Problem: new cp Symptoms: have improved cp Condition: Stable cp Diagnosis - Constipation cp - Other and unspecified ovarian cysts cp - Anemia, unspecified cp Followup: cp - With: Gavino Rios MD - When: 1 week - Reason: constipation Followup: cp - With: Private Physician - When: 1 week - Reason: anemia, ovarian cyst Discharge Instructions: - Discharge Summary Sheet cp - Anemia cp - Constipation, Adult cp - Ovarian Cyst cp Forms: - Medication Reconciliation Form cp - Thank You Letter cp - Antibiotic Education cp - Prescription Opioid Use cp - Patient Portal Instructions cp - Leadership Thank You Letter cp Signatures: Dispatcher [employer] Adis Lim PA PA cp Ludmila Franz, RN RN Gia Lindsay RN RN km8
[2023-07-30] MEDS ORDERED: MAGNESIUM CITRATE 300 ML BOT ONE (23:39)
[2023-07-31 00:26] VITALS: TEMP 98.2
[2023-07-31 00:27] VITALS: O2SAT 100
[2023-07-31 00:31] VITALS: BP 102/62
== END 2023-07-30 23:31 | disposition home or self-care (01) ==
LOC: ER 18:12
DX: K59.00 Constipation, unspecified (principal); N83.299 Other ovarian cyst, unspecified side; D64.9 Anemia, unspecified
CPT/HCPCS: 96361; 85025; 36415; 81025; 81003; 83690; 80053; 74177; 96374; 99285; Q9967; J7030